=== PATIENT | male | born 1950 | race Caucasian/White ===

== ENCOUNTER 2023-12-25 18:14 | Emergency (ER) | payer MEDICARE, OTHER ==
[2023-12-25 18:33] LABS: BASOPHILS # (AUTO) 0.1 10^3/uL (0.0-0.1); BASOPHILS % (AUTO) 1.1 %; EOSINOPHILS # (AUTO) 0.3 10^3/uL (0.0-0.7); EOSINOPHILS % (AUTO) 4.1 %; HCT - HEMATOCRIT 44.9 % (42.0-52.0); HGB - HEMOGLOBIN 14.8 g/dL (14.0-18.0); LYMPHOCYTES # (AUTO) 1.4 10^3/uL (1.5-3.5); LYMPHOCYTES % (AUTO) 23.2 %; MEAN CORPUSCULAR HEMOGLOBIN 31.8 pg (27.0-31.0); MEAN CORPUSCULAR VOLUME 96.4 fL (80.0-94.0); MEAN PLATELET VOLUME 9.5 fL (7.4-11.4); MONOCYTES # (AUTO) 0.6 10^3/uL (0.0-1.0); NEUTROPHILS # (AUTO) 3.8 10^3/uL (1.5-6.6); NEUTROPHILS % (AUTO) 62.4 %; PLT - PLATELET COUNT 244 10^3/uL (130-450); RED BLOOD COUNT 4.66 10^6/uL (4.70-6.10); RED CELL DISTRIBUTION WIDTH 12.4 % (12.0-15.0); WHITE BLOOD COUNT 6.1 x10^3/uL (4.8-10.8)
[2023-12-25 18:49] LABS: ALBUMIN 4.4 g/dL (3.2-5.5); ALBUMIN/GLOBULIN RATIO 1.6 (1.0-2.2); BILIRUBIN,TOTAL 0.5 mg/dL (0.2-1.0); CALCIUM 9.6 mg/dL (8.5-10.3); POTASSIUM 3.9 mmol/L (3.5-4.5); TOTAL PROTEIN 7.2 g/dL (6.4-8.9)
[2023-12-25] MEDS ORDERED: iohexoL-300 100 ML VIAL ONE (19:10)
--- NOTE | 2023-12-25 19:12 | ED Physician Documentation ---
PD HPI ABD PAIN - Stated complaint Stated Complaint: ABD PX - Chief complaint Chief Complaint: Abd Pain - History obtained from History obtained from: Patient - Additional information Additional information: This is a very nice 73-year-old gentleman, who has a history of diverticulitis or not for many years, and a prior bout of possible colitis (no cdiff) who presents with some mild to moderate generalized abdominal pain. It started around noon today, initially some cramping type pain about every 4 minutes, but the cramps have increased to about every minute now. Located center of the abdomen, nonradiating. He has no associated fever or chills, no nausea, vomiting, diarrhea or constipation, no urinary symptoms. He continues to pass gas. He ate around 1230 and felt like it did not make the pain any worse. He denies any chest pain, no difficulty breathing. He was concerned that this may be diverticulitis as he came into the ER. He is not attempt any medication or other treatment for this. No recent antibiotic use, no international travel. Review of Systems Constitutional: reports: Reviewed and negative Eyes: reports: Reviewed and negative Ears: reports: Reviewed and negative Nose: reports: Reviewed and negative Throat: reports: Reviewed and negative Cardiac: reports: Reviewed and negative Respiratory: reports: Reviewed and negative GI: reports: Abdominal Pain : reports: Reviewed and negative Skin: reports: Reviewed and negative Musculoskeletal: reports: Reviewed and negative Neurologic: reports: Reviewed and negative Psychiatric: reports: Reviewed and negative Endocrine: reports: Reviewed and negative PD PAST MEDICAL HISTORY - Past Medical History Past Medical History: Yes Cardiovascular: High cholesterol Respiratory: None Neuro: None Endocrine/Autoimmune: None GI: GERD : Benign prostate hypertrophy HEENT: None Psych: None, Other Musculoskeletal: None Derm: None Other Past Medical History: SLEEP DISORDER... - Past Surgical History Past Surgical History: Yes Ortho: Knee replacement, Other - Present Medications Home Medications: Ambulatory Orders Medication Instructions Recorded Confirmed Atorvastatin [Lipitor] 10 mg PO DAILY 12/25/23 12/25/23 Dicyclomine [Bentyl] 20 mg PO QID PRN #30 cap 12/25/23 Ondansetron Odt [Zofran] 4 mg TL Q6H PRN #10 tablet 12/25/23 Tamsulosin HCl [Flomax] 0.4 mg PO DAILY 12/25/23 12/25/23 traZODone [Desyrel] 50 mg PO DAILY 12/25/23 12/25/23 - Allergies Allergies/Adverse Reactions: Allergies Allergy/AdvReac Type Severity Reaction Status Date / Time No Known Drug Allergies Allergy Verified 12/25/23 18:25 - Social History Does the pt smoke?: No Smoking Status: Never smoker Does the pt drink ETOH?: Yes Does the pt have substance abuse?: No - Immunizations Immunizations are current?: Yes - POLST Patient has POLST: No PD ED PE NORMAL - Vitals Vital signs reviewed: Yes - General General: Alert and oriented X 3, No acute distress, Well developed/nourished - HEENT HEENT: Atraumatic, Pharynx benign - Cardiac Cardiac: RRR, No murmur, No gallop, No rub - Respiratory Respiratory: No respiratory distress, Clear bilaterally - Abdomen Abdomen: Normal bowel sounds, Soft, Non tender, Non distended, No organomegaly, Other (No reproducible abdominal pain) - Back Back: No CVA TTP, No spinal TTP - Derm Derm: Normal color, Warm and dry, No rash - Extremities Extremities: No deformity - Neuro Neuro: Alert and oriented X 3 Eye Opening: Spontaneous Motor: Obeys Commands Verbal: Oriented GCS Score: 15 - Psych Psych: Normal mood, Normal affect Results - Vitals Vitals: Vital Signs - 24 hr 12/25/23 12/25/23 18:16 20:10 Temperature 36.5 C Heart Rate 63 50 L Respiratory 16 16 Rate Blood Pressure 153/73 H 158/86 H O2 Saturation 99 97 Oxygen O2 Source Room air - EKG (time done) No standard instances EKG releavant findings:: EKG personally interpreted by author of this note. Relevant findings are: Rate: Rate (enter#) (58) Rhythm: NSR [place]: LAD Intervals: Normal MT QRS: Normal Ischemia: Q waves Computer interpretation: Agree with computer - Labs Labs: Laboratory Tests 12/25/23 12/25/23 12/25/23 18:24 18:29 18:29 WBC 6.1 RBC 4.66 L Hgb 14.8 Hct 44.9 MCV 96.4 H MCH 31.8 H MCHC 33.0 RDW 12.4 Plt Count 244 MPV 9.5 Neut # (Auto) 3.8 Lymph # (Auto) 1.4 L [place] # (Auto) 0.6 Eos # (Auto) 0.3 Baso # (Auto) 0.1 Absolute Nucleated RBC 0.00 Nucleated RBC % 0.0 Sodium 137 Potassium 3.9 Chloride 101 Carbon Dioxide 30 Anion Gap 6.0 BUN 17 Creatinine 1.0 Estimated GFR (MDRD) 74 L Glucose 113 H Calcium 9.6 Total Bilirubin 0.5 AST 17 ALT 11 Alkaline Phosphatase 55 Troponin I High Sens Total Protein 7.2 Albumin 4.4 Globulin 2.8 Albumin/Globulin Ratio 1.6 Lipase 53 Urine Color YELLOW Urine Clarity CLEAR Urine pH 6.0 Ur Specific [place] 1.020 Urine Protein NEGATIVE Urine Glucose (UA) NEGATIVE Urine Ketones NEGATIVE Urine Occult Blood NEGATIVE Urine Nitrite NEGATIVE Urine Bilirubin NEGATIVE Urine Urobilinogen 0.2 (NORMAL) Ur Leukocyte Esterase NEGATIVE Ur Microscopic Review NOT INDICATED Urine Culture Comments NOT INDICATED 12/25/23 12/25/23 18:29 20:17 WBC RBC Hgb Hct MCV MCH MCHC RDW Plt Count MPV Neut # (Auto) Lymph # (Auto) [place] # (Auto) Eos # (Auto) Baso # (Auto) Absolute Nucleated RBC Nucleated RBC % Sodium Potassium Chloride Carbon Dioxide Anion Gap BUN Creatinine Estimated GFR (MDRD) Glucose Calcium Total Bilirubin AST ALT Alkaline Phosphatase Troponin I High Sens 22.8 H* 23.8 H* Total Protein Albumin Globulin Albumin/Globulin Ratio Lipase Urine Color Urine Clarity Urine pH Ur Specific [place] Urine Protein Urine Glucose (UA) Urine Ketones Urine Occult Blood Urine Nitrite Urine Bilirubin Urine Urobilinogen Ur Leukocyte Esterase Ur Microscopic Review Urine Culture Comments - Rads (name of study) No standard instances Relevant Findings:: Final report received PD Medical Decision Making - ED course Complexity details: reviewed results, re-evaluated patient, considered differential, d/w patient ED course: This is a 73-year-old gentleman who presented with central abdominal pain as described in HPI. He was concern for possible diverticulitis. He is well- appearing here on physical exam, afebrile nontoxic in no acute distress. He Does not have any reproducible abdominal pain on exam but cramping every couple of minutes. He initially declined any pain medication but later did request some medication and he was given Toradol and Bentyl with improvement. Differentials considered included colitis, gastroenteritis, diverticulitis, anginal equivalent, GERD, pancreatitis, choledocholithiasis, Dissection, AAA, among others. Lab work was largely reassuring, stable CBC and CMP, I did get a troponin which is very slightly elevated at 22.8 and follow-up was 23. It is the patient has no chest pain or shortness of breath, and has more of a cramping abdominal pain, and stable EKG, I do not think this represents an HI. The patient had good relief with the Toradol and Bentyl as well as Zofran. We obtained a CT scan that shows possible enterocolitis versus early ileus or bowel obstruction. Given the patient still passing gas and symptoms have improved I think this is more likely a noninfectious colitis, and have recommended supportive measures including clear liquid diet, ibuprofen and Tylenol as needed for pain, and have prescribed Bentyl. The patient was given 4 tablets of [place] to use only if absolutely necessary though he is cautioned that this could make an ileus or bowel obstruction worse and he does not plan on taking these if he does not have to. I did review the CT findings with the patient and advised that this potentially could be very early obstruction or ileus symptoms and that if he had increasing abdominal pain, started vomiting, was not able to pass gas or had new concerns that he would need to return to the ER. Patient stable for discharge home at this time, return precautions reviewed in detail. Departure - Departure Disposition: 01 Home, Self Care Clinical Impression: Enterocolitis Condition: Good Instructions: Ileus, ED Gastroenteritis Non Infec Prescriptions: Dicyclomine [Bentyl] 20 mg PO QID PRN #30 cap PRN Reason: abdominal cramping/pain Ondansetron Odt [Zofran] 4 mg TL Q6H PRN #10 tablet PRN Reason: Nausea / Vomiting Comments: As we discussed, your CT scan showed some inflammation in the colon, likely a colitis which should improve on its own. You may, however, be developing an early bowel obstruction so if your pain worsens or you stop passing gas, start vomiting or having new concerns, please return to the ER. I have prescribed a nausea medicine and a medication to help with bowel cramping. You can also take Tylenol and ibuprofen. I am giving you a few tablets of hydrocodone to use only if absolutely necessary, but they can actually make a bowel obstruction or ileus worse. Stick to a clear liquid diet for the next 24 hours or so and then advance slowly to soft foods if you are feeling better. Avoid eating any foods that are difficult to digest such as meats and spicy foods for the next week or so until your symptoms improve. Return at anytime if worsening. Medication sent to [facility]. Forms: PCP List Discharge Date/Time: 12/25/23 20:55
[2023-12-25 19:29] LABS: BILIRUBIN,URINE NEGATIVE (NEGATIVE); GLUCOSE, URINE (UA) NEGATIVE (NEGATIVE); KETONES,URINE (UA) NEGATIVE (NEGATIVE); LEUKOCYTE ESTERASE, URINE NEGATIVE (NEGATIVE); NITRITE,URINE NEGATIVE (NEGATIVE); OCCULT BLOOD,URINE NEGATIVE (NEGATIVE); PROTEIN,URINE NEGATIVE (NEGATIVE); UROBILINOGEN,URINE 0.2 (NORMAL) E.U./dL (NORMAL)
[2023-12-25 19:30] LABS: CLARITY,URINE CLEAR (CLEAR)
[2023-12-25] MEDS: iohexoL-300 100 ML VIAL IVP ONE (19:33)
--- NOTE | 2023-12-25 19:54 | CT Report ---
PROCEDURE: Abdomen/Pelvis W INDICATIONS: abd pain CONTRAST: 100ml [id number] TECHNIQUE: After the administration of intravenous contrast, a CT scan of the abdomen and pelvis was performed. Images were recorded and evaluated at appropriate window settings. Reformats: coronal and sagittal. F or radiation dose reduction, the following was used: automated exposure control, adjustment of mA and /or kV according to patient size. COMPARISON: None. FINDINGS: Image quality: Diagnostic. Lower chest: Possible 6 mm left lower lobe nodule versus focal atelectasis. Lungs otherwise clear. Sm all hiatal hernia. Heart size is normal. Small pericardial effusion likely physiologic. Liver: Hepatic steatosis. Gallbladder: No radiopaque stones or wall thickening. Biliary tree: No intrahepatic or extrahepatic dilation, accounting for age. Spleen: No splenomegaly. Pancreas: No pancreatic ductal dilation. No peripancreatic inflammation. Adrenals: No adrenal nodule. Kidneys and ureters: No hydronephrosis. No renal cystic lesion which requires follow up. No solid mas s. Bilateral ureters are normal in course and caliber. Stomach, bowel and peritoneum: No gastric or small bowel dilatation. Multiple loops of fluid-filled s mall bowel without significant dilatation or wall thickening. No mesenteric stranding. There is also mild circumferential wall thickening of the ascending colon, transverse colon and ascending colon. Mi nimal pericolonic stranding. Extensive colonic diverticulosis without evidence for acute diverticulit is. Normal appendix No pathologic free fluid. Lymph nodes: No central or retroperitoneal adenopathy. Vessels: No infrarenal aortic aneurysm. Patent portal vein. PELVIS Reproductive organs: Unremarkable. Bladder: No abnormal wall thickening, accounting for underdistention. Pelvic lymph nodes: No pelvic adenopathy by size criteria. Bones: No aggressive osseous abnormality. Multilevel spondylosis of the imaged spine. No acute compre ssion fracture. Other: No significant ventral or inguinal hernia. Small fat-containing umbilical hernia without acute inflammation. IMPRESSION: Multiple fluid-filled loops of small bowel without significant distention or wall thickening. There i s also mild circumferential wall thickening of the ascending colon through the distal descending colo n suggestive of colitis. Overall, findings likely represent enterocolitis either infectious or inflam matory in etiology. Early ileus versus obstruction not excluded but thought less likely. Colonic diverticulosis without acute diverticulitis. Normal appendix. Small hiatal hernia. Hepatic steatosis. Other chronic/nonacute findings as above. Reviewed by: Redd Conti MD on 12/25/2023 7:53 PM PDT Approved by: Redd Conti MD on 12/25/2023 7:53 PM PDT Station ID: [id number]
[2023-12-25] MEDS: DICYCLOMINE 10 MG CAPSULE PO STA (20:02)
[2023-12-25] MEDS: KETOROLAC 30 MG/ML VIAL IVP STA (20:03)
[2023-12-25] MEDS: ONDANSETRON 4 MG/2 ML VIAL IVP STA (20:03)
[2023-12-25 20:15] VITALS: BP 158/86; O2SAT 97
[2023-12-25] MEDS: ONDANSETRON ODT 4 MG Prepack 2 TL PRN (20:36)
[2023-12-25] MEDS: HYDROcod/ACET 5/325 Prepack 4 PO STA (20:37)
== END 2023-12-25 20:55 | disposition home or self-care (01) ==
LOC: ED 18:14
DX: K52.9 Noninfective gastroenteritis and colitis, unspecified (principal); E78.00 Pure hypercholesterolemia, unspecified; K21.9 Gastro-esophageal reflux disease without esophagitis
CPT/HCPCS: 36415; 74177; 80053; 81003; 83690; 84484; 85025; 93005; 96374; 99284; A9270; Q9967; 81001; 87086

== ENCOUNTER 2023-12-26 15:16 | Inpatient (IN) | payer MEDICARE ==
--- NOTE | 2023-12-26 15:26 | ED Physician Documentation ---
History of Present Illness - Stated complaint Stated Complaint: ABD PX - Additonal information Additional information: 73-year-old male with history of diverticulitis no history of abdominal surgeries, hypercholesterolemia, GERD, BPH presents emergency department for ongoing abdominal pain. Patient was seen in our emergency department yesterday evening where a CT scan was complete and workup was complete and was fairly inconclusive CT scan did reveal multiple fluid-filled loops of small bowel without significant distention with possible early signs of an ileus. Patient has had no history of abdominal surgeries in the past. He says going home his abdominal pain has increased in severity he is now feeling nauseous no vomiting he says that he has a strong urge to have a bowel movement or to pass gas but is unable to do so. No fevers or chills. PD PAST MEDICAL HISTORY - Past Medical History Cardiovascular: High cholesterol Respiratory: None Neuro: None Endocrine/Autoimmune: None GI: GERD : Benign prostate hypertrophy HEENT: None Psych: None, Other Musculoskeletal: None Derm: None - Past Surgical History Past Surgical History: Yes Ortho: Knee replacement, Other - Present Medications Home Medications: Ambulatory Orders Medication Instructions Recorded Confirmed Atorvastatin [Lipitor] 10 mg PO DAILY 12/25/23 12/26/23 Dicyclomine [Bentyl] 20 mg PO QID PRN #30 cap 12/25/23 12/26/23 Ondansetron Odt [Zofran] 4 mg TL Q6H PRN #10 tablet 12/25/23 12/26/23 Tamsulosin HCl [Flomax] 0.4 mg PO DAILY 12/25/23 12/26/23 traZODone [Desyrel] 50 mg PO DAILY 12/25/23 12/26/23 - Allergies Allergies/Adverse Reactions: Allergies Allergy/AdvReac Type Severity Reaction Status Date / Time No Known Drug Allergies Allergy Verified 12/26/23 15:30 - Social History Does the pt smoke?: No Smoking Status: Never smoker Does the pt drink ETOH?: Yes Does the pt have substance abuse?: No - Immunizations Immunizations are current?: Yes - POLST Patient has POLST: No PD ED PE NORMAL - Vitals Vital signs reviewed: Yes - General General: Alert and oriented X 3, No acute distress, Well developed/nourished - HEENT HEENT: Atraumatic, PERRL, EOMI - Neck Neck: Supple, no meningeal sign - Cardiac Cardiac: RRR - Respiratory Respiratory: No respiratory distress - Abdomen Abdomen: Soft, Other (distended, decreased bowel tones, tenderness with palpation, No signs of peritonitis) - Back Back: No CVA TTP - Derm Derm: Normal color, Warm and dry, No rash - Psych Psych: Normal mood, Normal affect Results - Vitals Vitals: Vital Signs - 24 hr 12/26/23 12/26/23 12/26/23 15:27 17:30 19:00 Temperature 36.5 C Heart Rate 88 76 68 Respiratory 16 15 15 Rate Blood Pressure 144/99 H 152/79 H 148/83 H O2 Saturation 94 95 95 Oxygen O2 Source Room air - Labs Labs: Laboratory Tests 12/26/23 12/26/23 15:47 15:47 WBC 9.6 RBC 5.03 Hgb 15.8 Hct 47.8 MCV 95.0 H MCH 31.4 H MCHC 33.1 RDW 12.3 Plt Count 246 MPV 9.5 Neut # (Auto) 8.1 H Lymph # (Auto) 0.8 L [place] # (Auto) 0.5 Eos # (Auto) 0.1 Baso # (Auto) 0.0 Absolute Nucleated RBC 0.00 Nucleated RBC % 0.0 Sodium 132 L Potassium 4.1 Chloride 95 L Carbon Dioxide 29 Anion Gap 8.0 BUN 15 Creatinine 1.0 Estimated GFR (MDRD) 74 L Glucose 115 H Calcium 9.9 Magnesium 1.7 Total Bilirubin 1.2 H AST 16 ALT 10 Alkaline Phosphatase 62 Total Protein 7.2 Albumin 4.3 Globulin 2.9 Albumin/Globulin Ratio 1.5 Lipase 31 - Rads (name of study) Abdomen pelvis CT with Relevant Findings:: Final report received, EMP independent interpretation of test, Other (Definite evidence of small bowel obstruction at the distal level of the ileum. Developing pancreatic duct dilation without obstructing mass) PD Medical Decision Making - ED course ED course: 73-year-old male presents emergency department for abdominal pain. Patient was here last night but we went ahead and decided to repeat CT scan as patient's abdominal pain has worsened with now worsening nausea. CT does now show a definite evidence of a small bowel obstruction at the level of the distal ileum. Labs are also complete for further evaluation he has no leukocytosis no anemia mild hyponatremia, 132, normal kidney function no other acute abnormalities on labs. Patient did drink oral Gastrografin for CT scan an NG tube was placed. I spoke with the on-call telemetry hospitalist who has graciously agreed to admit the patient for further hospitalization and workup of patient's small bowel obstruction. He did last have a endoscopy/colonoscopy about a year ago in [place] and they removed a couple polyps and the tissue was found to be benign he also appeared to have some internal hemorrhoids. I spoke with the on- call surgeon Dr. Rodriguez who has graciously agreed to consult on the patient he does not believe that he will need surgery at this point in time. Patient's pain is controlled with Dilaudid here in the emergency department and he has agreed to be admitted. Departure - Departure Disposition: 66 [facility] DC/Rita Clinical Impression: Small bowel obstruction
[2023-12-26] MEDS ORDERED: iohexoL-300 100 ML VIAL ONE (15:49)
[2023-12-26] MEDS ORDERED: DIATRIZOATE MEGLU/DIATRIZO SOD 30 ML BOTTLE PO ONE (15:50)
[2023-12-26 15:54] LABS: BASOPHILS % (AUTO) 0.4 %; EOSINOPHILS # (AUTO) 0.1 10^3/uL (0.0-0.7); EOSINOPHILS % (AUTO) 1.4 %; HCT - HEMATOCRIT 47.8 % (42.0-52.0); HGB - HEMOGLOBIN 15.8 g/dL (14.0-18.0); LYMPHOCYTES # (AUTO) 0.8 10^3/uL (1.5-3.5); MEAN CORPUSCULAR HEMOGLOBIN 31.4 pg (27.0-31.0); MEAN CORPUSCULAR HGB CONC 33.1 g/dL (32.0-36.0); MEAN PLATELET VOLUME 9.5 fL (7.4-11.4); MONOCYTES # (AUTO) 0.5 10^3/uL (0.0-1.0); MONOCYTES % (AUTO) 5.7 %; NEUTROPHILS # (AUTO) 8.1 10^3/uL (1.5-6.6); NEUTROPHILS % (AUTO) 84.3 %; PLT - PLATELET COUNT 246 10^3/uL (130-450); RED BLOOD COUNT 5.03 10^6/uL (4.70-6.10); RED CELL DISTRIBUTION WIDTH 12.3 % (12.0-15.0); WHITE BLOOD COUNT 9.6 x10^3/uL (4.8-10.8)
[2023-12-26 16:06] LABS: ALBUMIN 4.3 g/dL (3.2-5.5); ALBUMIN/GLOBULIN RATIO 1.5 (1.0-2.2); BILIRUBIN,TOTAL 1.2 mg/dL (0.2-1.0); CALCIUM 9.9 mg/dL (8.5-10.3); MAGNESIUM 1.7 mg/dL (1.7-2.3); POTASSIUM 4.1 mmol/L (3.5-4.5); TOTAL PROTEIN 7.2 g/dL (6.4-8.9)
[2023-12-26] MEDS: HYDROmorphone 0.5 MG/0.5 ML SYRINGE IVP STA ×2 (16:13→18:39)
[2023-12-26] MEDS: ONDANSETRON 4 MG/2 ML VIAL IVP STA (16:13)
[2023-12-26] MEDS: iohexoL-300 100 ML VIAL IVP ONE (17:25)
--- NOTE | 2023-12-26 17:42 | CT Report ---
PROCEDURE: Abdomen/Pelvis W INDICATIONS: generalized abdominal pain CONTRAST: 100ml [id number] TECHNIQUE: After the administration of intravenous contrast, a CT scan of the abdomen and pelvis was performed. Images were recorded and evaluated at appropriate window settings. Reformats: coronal and sagittal. F or radiation dose reduction, the following was used: automated exposure control, adjustment of mA and /or kV according to patient size. COMPARISON: 12/25/2023. FINDINGS: Image quality: Diagnostic. Lower chest: Unremarkable. Liver: No solid mass. Gallbladder: No radiopaque stones or wall thickening. Biliary tree: No intrahepatic or extrahepatic dilation, accounting for age. Spleen: No splenomegaly. Pancreas: Pancreatic duct is dilated. However, there is no obstructing lesion noted. The pancreatic d uct looks more dilated than yesterday. Adrenals: No adrenal nodule. Kidneys and ureters: No hydronephrosis. No renal cystic lesion which requires follow up. No solid mas s. Stomach, bowel and peritoneum: Moderate hiatal hernia. Thickened distal esophagus is consistent with distal esophagitis Interval increase in dilatation of small bowel loops consistent with worsening sma ll bowel obstruction. Presence, a patient support representative loop on image 66 of series 2 now measures 3.4 cm. Th ere is a transition point in the ileum. On today's study, the colon appears decompressed resulting in mild prominence of the wall of the colon. Moderately advanced sigmoid diverticulosis without evidenc e of acute diverticulitis. Lymph nodes: No central or retroperitoneal adenopathy. Vessels: No infrarenal aortic aneurysm. Patent portal vein. PELVIS Reproductive organs: Unremarkable. Bladder: No abnormal wall thickening, accounting for underdistention. Pelvic lymph nodes: No pelvic adenopathy by size criteria. Bones: No aggressive osseous abnormality. Other: No significant ventral or inguinal hernia. IMPRESSION: 1. There is now definite evidence of small bowel obstruction at the level of the distal ileum. 2. Moderately advanced sigmoid diverticulosis without evidence of acute diverticulitis. 3.. Moderate hiatal hernia with findings suggesting distal esophagitis. 4. Developing pancreatic duct dilatation without obstructing mass Reviewed by: Star Arora MD on 12/26/2023 5:40 PM PDT Approved by: Star Arora MD on 12/26/2023 5:40 PM PDT Station ID: [id number]
--- NOTE | 2023-12-26 19:59 | HISTORY & PHYSICAL EXAMINATION ---
Chief Complaint - Chief Complaint Chief Complaint: abdominal pain History of Present Illness - Admitted From Admitted From:: home - History Obtained From Records Reviewed: yes History obtained from: patient, chart review Exam Limitations: telemedicine - History of Present Illness HPI Comment/Other: Mr Butler is a 73 yo M with history of HLD, diverticulosis/diverticulitis. He denies any prior history of abdominal surgeries, no prior history of SBO. He presents to the ER with c/o abdominal pain onset 2 days ago, throbbing, intermittent, aching, up to 8/10 pain at times, lasts a few seconds at a time. He was seen yesterday for suspected ileus, today pain worsened and associated with nausea so he returned to the ER. CT scan shows small bowel obstruction at distal ileum. Denies vomiting, feels nauseous. Poor appetite since yesterday. Last BM on Saturday morning (after taking a laxative). He has been constipated few days prior, constipation is new. Denies blood in stool. Denies dark/tarry stool. Denies fevers/chills. Last colonoscopy ~1 year ago in [place] with polypectomy. Currently pain is 3/10, much improved, placement of NG tube in ER and he has received IV dilaudid. History - Past Medical History Cardiovascular: reports: High cholesterol Respiratory: reports: None Neuro: reports: None Endocrine/Autoimmune: reports: None GI: reports: GERD : reports: Benign prostate hypertrophy HEENT: reports: None Psych: reports: None, Other Musculoskeletal: reports: None Derm: reports: None MRSA Hx?: No - Past Surgical History Ortho: reports: Knee replacement, Other - POLST Patient has POLST: No Meds/Allgy - Home Medications Home Medications: Ambulatory Orders Medication Instructions Recorded Confirmed Atorvastatin [Lipitor] 10 mg PO DAILY 12/25/23 12/26/23 Dicyclomine [Bentyl] 20 mg PO QID PRN #30 cap 12/25/23 12/26/23 Ondansetron Odt [Zofran] 4 mg TL Q6H PRN #10 tablet 12/25/23 12/26/23 Tamsulosin HCl [Flomax] 0.4 mg PO DAILY 12/25/23 12/26/23 traZODone [Desyrel] 50 mg PO DAILY 12/25/23 12/26/23 - Allergies Allergies/Adverse Reactions: Allergies Allergy/AdvReac Type Severity Reaction Status Date / Time No Known Drug Allergies Allergy Verified 12/26/23 15:30 Review of Systems - Constitutional Constitutional: reports: Poor appetite. denies: Fever, Chills, Weakness - Cardiovascular Cariovascular: denies: Palpitations, Chest pain - Respiratory Respiratory: denies: Cough, Sputum production - Gastrointestinal Gastrointestinal: reports: Abdominal pain, Abdominal distention, Constipation, Change in bowel habits, Nausea, Poor appetite. denies: Diarrhea, Rectal bleeding, Black stools, Bloody stools, Vomiting - Integumentary Integumentary: denies: Rash, Pruritis - Neurological Neurological: denies: General weakness, Focal weakness - All Other Systems All Other Systems: reports: Reviewed and negative Exam - Vital Signs Reviewed Vital Signs: Yes Vital Signs: Vital Signs x48h Temp Pulse Resp BP Pulse Ox 12/26/23 19:00 68 15 148/83 H 95 12/26/23 17:30 76 15 152/79 H 95 12/26/23 15:27 36.5 C 88 16 144/99 H 94 - Physical Exam General Appearance: positive: No acute distress, Alert Respiratory: positive: No respiratory distress Abdomen: positive: Tenderness (with patient exam, diffuse tenderness with palpation) Rectal: negative: Bloody stool Skin: positive: Color nml, No rash Neurologic/Psychiatric: positive: Oriented x3, Mood/affect nml Conclusion/Plan - Lab Results Lab results reviewed: Yes Fish Bones: 12/26/23 15:47 12/26/23 15:47 - Diagnostic Imaging Results Diagnostic Imaging Results: positive: Final report reviewed - Other Other Results/Comments: Assessment/Plan Small bowel obstruction -No prior history of SBO or abdominal surgery, he does have a history of diverticulosis -No evidence of diverticulitis on CT -Obstruction at the level of distal ileum per CT report -Patient has not had BM or passed flatus x 2 days -NG tube in place -Strict NPO -IV fluids for hydration -IV pain control -ER provider has reviewed case with general surgery, will consult in a.m. HLD -Hold statin while NPO BPH -Per patient ok to hold Flomax for tonight DVT ppx: SCDs (in case indication for surgical intervention), encourage ambulation as tolerated Full code Telemedicine Consult Details - Provider Location & Consult Time Telemedicine consultation conducted via videoconferencing?: Yes List names and roles of persons who participated in consult:: Ciera MCKEON, patient, ER provider (phone call) Telemedicine provider location:: [facility] [place]
[2023-12-26] MEDS ORDERED: SODIUM CHLORIDE FLUSH 0.9% 10 ML SYRINGE IVP PRN (20:04)
[2023-12-26] MEDS ORDERED: HYDROmorphone 0.5 MG/0.5 ML SYRINGE IVP PRN (20:04)
--- NOTE | 2023-12-26 20:55 | XRAY Report ---
PROCEDURE: No-Charge 1V Abdomen INDICATIONS: NG tube TECHNIQUE: 1 view of the abdomen were acquired. COMPARISON: None. FINDINGS: Surgical changes and devices: Nasogastric tube projects below the left hemidiaphragm. Bowel: No pneumoperitoneum. The bowel gas pattern is normal. Stool load within normal limits. Soft tissues: No masses; visualized solid organ contours appear normal in size. No suspicious abdom inal calcifications. Bones: No suspicious bony abnormalities. IMPRESSION: Nasogastric tube projecting below the left hemidiaphragm. Reviewed by: Elinor Cortez MD on 12/26/2023 8:54 PM PDT Approved by: Elinor Cortez MD on 12/26/2023 8:54 PM PDT Station ID: [id number]
[2023-12-26] MEDS: FAMOTIDINE 20 MG/2 ML VIAL IVP SCH (21:05)
[2023-12-26] MEDS: SODIUM CHLORIDE 0.9% 1,000 ML IV SCH (21:05)
[2023-12-27] MEDS: HYDROmorphone 0.5 MG/0.5 ML SYRINGE IVP PRN (01:12)
[2023-12-27] MEDS: SODIUM CHLORIDE FLUSH 0.9% 10 ML SYRINGE IVP SCH (01:15)
[2023-12-27 05:58] LABS: CREATININE 1.1 mg/dL (0.6-1.3); POTASSIUM 4.4 mmol/L (3.5-4.5)
--- NOTE | 2023-12-27 10:23 | PROVIDER PROGRESS NOTE ---
Assessment/Plan - Problem List (1) Small bowel obstruction Assessment/Plan: Patient admitted overnight due to abdominal pain with confirmed SBO with transition point on imaging. Patient without prior history of SBO, and denies any prior abdominal surgeries. Continues to have colicky, crampy abdominal pain though he does have bowel sounds present on exam * Continue NG tube with low intermittent suction * Continue pain control, minimizing narcotics as much as possible * General surgery consult requested by ED attending, appreciate assistance by our general surgery colleagues * Given improvement with bowel activity, consider small bowel follow through series (2) Dilated cbd, acquired Assessment/Plan: Patient with abdominal pain due to confirmed SBO Does not endorse specific RUQ pain though he does have some RUQ tenderness on exam LFTs are reassuring with minimal elevation to bilirubin However given CBD dilatation on CT abdomen, with abdominal pain present, would be reasonable to evaluate further with US RUQ, order has been placed (3) HLD (hyperlipidemia) Assessment/Plan: Given SBO, will limit any unnecessary PO meds - hold statin (4) BPH (benign prostatic hyperplasia) Assessment/Plan: Stable Resume flomax - Current Meds Current Meds: Current Medications Generic Name Dose Route Start Last Admin Trade Name Freq PRN Reason Stop Dose Admin Famotidine 20 mg 12/26/23 21:00 12/27/23 08:51 Famotidine 20 Mg/2 Ml Vial IVP 20 mg BID SOHAM Administration Sodium Chloride 1,000 mls @ 100 mls/hr 12/26/23 21:00 12/27/23 07:26 Normal Saline 0.9% IV 100 mls/hr .Q10H SOHAM Administration Sodium Chloride 10 ml 12/27/23 01:00 12/27/23 08:51 Sodium Chloride Flush 0.9% 10 Ml Syringe IVP 10 ml 0100,0900,1700 SOHAM Administration - Lab Result Lab results reviewed: Yes Fish Bone Diagrams: 12/26/23 15:47 12/27/23 05:19 - Diagnostic Imaging Results Diagnostic Imaging Results: Final report reviewed - Additional Planning Condition/Complexity: Stable My Orders: My Active Orders 12/27/23 09:44 Acetaminophen [Tylenol] 650 mg PO Q4HR PRN 12/27/23 09:49 oxyCODONE [Roxicodone] 10 mg PO Q4HR PRN 12/28/23 05:00 CBC W/O DIFF (HEMOGRAM) [HEME] DAILYLAB CMP [COMPREHENSIVE METABOLIC PANEL] [CHEM] DAILYLAB 12/29/23 05:00 CBC W/O DIFF (HEMOGRAM) [HEME] DAILYLAB CMP [COMPREHENSIVE METABOLIC PANEL] [CHEM] DAILYLAB 12/30/23 05:00 CBC W/O DIFF (HEMOGRAM) [HEME] DAILYLAB CMP [COMPREHENSIVE METABOLIC PANEL] [CHEM] DAILYLAB Consult/Specialty: Surgery Plan Discussed with:: Patient Time Spent: 15-30 minutes Subjective - Subjective Patient Reports: Abdominal Pain Nursing Reports: Vomitting (x1) Objective Vital Signs: Vital Signs - 24 hr 12/26/23 12/26/23 12/26/23 15:27 17:30 19:00 Temperature 36.5 C Heart Rate 88 76 68 Heart Rate [ Brachial] Respiratory 16 15 15 Rate Blood Pressure 144/99 H 152/79 H 148/83 H Blood Pressure [Left Brachial artery] Blood Pressure [Right Brachial artery] O2 Saturation 94 95 95 12/26/23 12/27/23 12/27/23 20:52 00:15 07:53 Temperature 36.5 C 36.9 C 36.6 C Heart Rate Heart Rate [ 98 74 82 Brachial] Respiratory 20 18 18 Rate Blood Pressure Blood Pressure 145/92 H [Left Brachial artery] Blood Pressure 133/82 H 110/65 [Right Brachial artery] O2 Saturation 96 94 95 Oxygen O2 Source Room air I&O (Last 24 Hrs): Intake and Output Totals x24h 12/25/23 12/26/23 12/27/23 23:59 23:59 23:59 Intake Total 1060 Output Total 675 Balance 385 General: Alert, Oriented x3, Cooperative HEENT: Atraumatic, EOMI Cardiovascular: Regular rate, Normal S1, Normal S2 Respiratory: No respiratory distress Abdomen: Normal bowel sounds, Soft, Other (Generalized tenderness to palpation, bowel sounds are present x 4 quadrants, but moderately hypoactive) Extremities: No clubbing, No cyanosis, No edema Skin: No rashes - Results Results: Laboratory Results WBC 9.6 x10^3/uL (4.8-10.8) 12/26/23 15:47 RBC 5.03 10^6/uL (4.70-6.10) 12/26/23 15:47 Hgb 15.8 g/dL (14.0-18.0) 12/26/23 15:47 Hct 47.8 % (42.0-52.0) 12/26/23 15:47 MCV 95.0 fL (80.0-94.0) H 12/26/23 15:47 MCH 31.4 pg (27.0-31.0) H 12/26/23 15:47 MCHC 33.1 g/dL (32.0-36.0) 12/26/23 15:47 RDW 12.3 % (12.0-15.0) 12/26/23 15:47 Plt Count 246 10^3/uL (130-450) 12/26/23 15:47 MPV 9.5 fL (7.4-11.4) 12/26/23 15:47 Neut # (Auto) 8.1 10^3/uL (1.5-6.6) H 12/26/23 15:47 Lymph # (Auto) 0.8 10^3/uL (1.5-3.5) L 12/26/23 15:47 Yell # (Auto) 0.5 10^3/uL (0.0-1.0) 12/26/23 15:47 Eos # (Auto) 0.1 10^3/uL (0.0-0.7) 12/26/23 15:47 Baso # (Auto) 0.0 10^3/uL (0.0-0.1) 12/26/23 15:47 Absolute Nucleated RBC 0.00 x10^3/uL 12/26/23 15:47 Nucleated RBC % 0.0 /100WBC 12/26/23 15:47 Sodium 132 mmol/L (135-145) L 12/27/23 05:19 Potassium 4.4 mmol/L (3.5-4.5) 12/27/23 05:19 Chloride 95 mmol/L (101-111) L 12/27/23 05:19 Carbon Dioxide 30 mmol/L (21-32) 12/27/23 05:19 Anion Gap 7.0 (6-13) 12/27/23 05:19 BUN 14 mg/dL (6-20) 12/27/23 05:19 Creatinine 1.1 mg/dL (0.6-1.3) 12/27/23 05:19 Estimated GFR (MDRD) 66 (>89) L 12/27/23 05:19 Glucose 116 mg/dL (74-104) H 12/27/23 05:19 Calcium 9.0 mg/dL (8.5-10.3) 12/27/23 05:19 Magnesium 1.7 mg/dL (1.7-2.3) 12/26/23 15:47 Total Bilirubin 1.2 mg/dL (0.2-1.0) H 12/26/23 15:47 AST 16 IU/L (10-42) 12/26/23 15:47 ALT 10 IU/L (10-60) 12/26/23 15:47 Alkaline Phosphatase 62 IU/L (42-121) 12/26/23 15:47 Total Protein 7.2 g/dL (6.4-8.9) 12/26/23 15:47 Albumin 4.3 g/dL (3.2-5.5) 12/26/23 15:47 Globulin 2.9 g/dL (2.1-4.2) 12/26/23 15:47 Albumin/Globulin Ratio 1.5 (1.0-2.2) 12/26/23 15:47 Lipase 31 U/L (11-82) 12/26/23 15:47 ABX Reporting Has patient been on IV antibiotics over the past 48 hours?: No Current Medications - Current Medications Current Medications: Current Medications Generic Name Dose Route Start Last Admin Trade Name Freq PRN Reason Stop Dose Admin Famotidine 20 mg 12/26/23 21:00 12/27/23 08:51 Famotidine 20 Mg/2 Ml Vial IVP 20 mg BID SOHAM Administration Sodium Chloride 1,000 mls @ 100 mls/hr 12/26/23 21:00 12/27/23 07:26 Normal Saline 0.9% IV 100 mls/hr .Q10H SOHAM Administration Sodium Chloride 10 ml 12/27/23 01:00 12/27/23 08:51 Sodium Chloride Flush 0.9% 10 Ml Syringe IVP 10 ml 0100,0900,1700 SOHAM Administration
--- NOTE | 2023-12-27 10:24 | Ultrasound Report ---
PROCEDURE: Abdomen Limited INDICATIONS: RUQ U/S to evaluate CBD dilatation, abdominal pain TECHNIQUE: Real-time focused scanning was performed of the abdomen, with image documentation. COMPARISONS: 12/26/2023 CT FINDINGS: Liver: Liver measures 15 cm. Heterogeneous echotexture. Gallbladder: No gallstones, sludge, wall thickening or pericholecystic edema. Biliary ducts: Intrahepatic bile ducts are non-dilated. Extrahepatic bile duct caliber measures 3 m m. Normal is 6-7 mm or less in diameter, or 10 mm or less post-cholecystectomy. Pancreas: Visualized portions of the pancreas are sonographically normal. The pancreatic duct measures 2 mm, within normal limits Right kidney: Normal in size and echotexture. Right kidney measures 9 cm long. No hydronephrosis or nephrolithiasis. No solid masses. No complex renal cystic lesions which require follow-up. IVC: Intrahepatic inferior vena cava is patent. Miscellaneous: No free abdominal fluid. IMPRESSION: No acute gallbladder abnormality. No pathologic dilation of the pancreatic duct or CBD allowing for age. Heterogeneous hepatic echotexture is nonspecific, sometimes seen with fibrofatty infiltration Reviewed by: Cruzito Vargas MD on 12/27/2023 10:23 AM PDT Approved by: Cruzito Vargas MD on 12/27/2023 10:23 AM PDT Station ID: [id number]
[2023-12-27] MEDS: ONDANSETRON 4 MG/2 ML VIAL IVP PRN (11:49)
[2023-12-27] MEDS: TAMSULOSIN 0.4 MG CAPSULE PO SCH (11:49)
--- NOTE | 2023-12-27 13:05 | PHARMACY PROGRESS NOTE ---
- Best Possible Medication History Admit Date and Time: 12/26/232003 Processed by: Pharmacy Medication History completed: Yes Patient Interview: Completed Secondary Source(s): Written medication list, Pharmacy records (PER PT INTERVIEW, LOR RECORDS, AND KATH SEO), Insurance records As the person ultimately responsible for medication therapy, providers are able to order a medication from an existing home medication list in [facility] via the "Reconcile Routine" prior to Confirmation of that medication by [employer] intelligence support. Such practice is discouraged except when the physician, in their clinical judgment, deems that a medical need exists for a medication without regard to previous use.
[2023-12-27] MEDS ORDERED: LORazepam 2 MG/ML VIAL IVP PRN (14:09)
--- NOTE | 2023-12-27 14:30 | CONSULTATION NOTE ---
Referring Provider Name of Referring Provider:: KOLE Pérez Consult Date: 12/27/23 Chief Complaint - Chief Complaint Chief Complaint: Small bowel obstruction History of Present Illness - Admitted From Admitted From:: Emergency department - History Obtained From Records Reviewed: Yes History obtained from: Patient and chart Exam Limitations: None - History of Present Illness HPI Comment/Other: Patient is a very pleasant 73-year-old male evaluated in room [address] [facility]'s MedSurg unit at the request of Alexandria Kelley. Dr. Jv Coreas also discussed his care with me this morning. The patient had the abrupt onset of abdominal pain along with profound nausea but no vomiting. He states that he felt like he needed to push to have a bowel movement but could not to due to the distention in his stomach. Today he states that he does not have that distended feeling but he has had a nasogastric tube placed with a marked decrease in his stomach volume. Importantly, he states he has never had a previous surgery but he does not remember. He states he could have had his appendix out. He is states that he is normally very active and golfs 3 times a week in [place]. After I saw the patient Dr. Coreas tells me about the possibility of DTs in this patient. History - Past Medical History Cardiovascular: reports: High cholesterol Respiratory: reports: None Neuro: reports: None Endocrine/Autoimmune: reports: None GI: reports: GERD : reports: Benign prostate hypertrophy HEENT: reports: None Psych: reports: None, Other Musculoskeletal: reports: None Derm: reports: None MRSA Hx?: No - Past Surgical History Ortho: reports: Knee replacement, Other - POLST Patient has POLST: No Meds/Allgy - Home Medications Home Medications: Ambulatory Orders Medication Instructions Recorded Confirmed Atorvastatin [Lipitor] 10 mg PO DAILY 12/25/23 12/27/23 Dicyclomine [Bentyl] 20 mg PO QID PRN #30 cap 12/25/23 12/27/23 Ondansetron Odt [Zofran] 4 mg TL Q6H PRN #10 tablet 12/25/23 12/27/23 Tamsulosin HCl [Flomax] 0.4 mg PO DAILY 12/25/23 12/27/23 traZODone [Desyrel] 50 mg PO DAILY 12/25/23 12/27/23 - Allergies Allergies/Adverse Reactions: Allergies Allergy/AdvReac Type Severity Reaction Status Date / Time No Known Drug Allergies Allergy Verified 12/26/23 15:30 Review of Systems - Constitutional Constitutional: denies: Fatigue, Fever, Chills - Eyes Eyes: denies: Pain - Ears, Nose & Throat Ears, Nose & Throat: denies: Ear pain - Cardiovascular Cariovascular: denies: Irregular heart rate, Palpitations, Chest pain - Respiratory Respiratory: denies: Cough - Gastrointestinal Gastrointestinal: reports: Abdominal pain, Abdominal distention, Constipation, Nausea. denies: Rectal bleeding, Black stools, Bloody stools, Vomiting - Genitourinary Genitourinary: denies: Dysuria - Musculoskeletal Musculoskeletal: denies: Muscle pain, Back pain - Integumentary Integumentary: denies: Rash - Psychiatric Psychiatric: denies: Depression Exam - Vital Signs Reviewed Vital Signs: Yes Vital Signs: Vital Signs x48h Temp Pulse Resp BP Pulse Ox 12/27/23 07:53 36.6 C 82 18 110/65 95 - Physical Exam General Appearance: positive: No acute distress, Alert Eyes Bilateral: positive: No lid inflammation, Conjunctivae nml, No scleral icterus ENT: positive: No signs of dehydration Neck: positive: No JVD, Trachea midline Respiratory: positive: Chest non-tender, No respiratory distress, Breath sounds nml Cardiovascular: positive: Regular rate & rhythm, No murmur, No gallop Abdomen: positive: No organomegaly, Nml bowel sounds (Ever so slightly decreased), Tenderness (Primarily in the right lower quadrant). negative: Guarding, Rebound Skin: positive: Color nml, No rash, Warm, Dry Extremities: positive: Non-tender, Nml appearance Neurologic/Psychiatric: positive: Oriented x3, Motor nml, Sensation nml, Mood/affect nml Conclusion and Plan - Lab Results Laboratory Results 12/27/23 05:19: Sodium 132 L, Potassium 4.4, Chloride 95 L, Carbon Dioxide 30, Anion Gap 7.0, BUN 14, Creatinine 1.1, Estimated GFR (MDRD) 66 L, Glucose 116 H, Calcium 9.0 12/26/23 15:47: Sodium 132 L, Potassium 4.1, Chloride 95 L, Carbon Dioxide 29, Anion Gap 8.0, BUN 15, Creatinine 1.0, Estimated GFR (MDRD) 74 L, Glucose 115 H, Calcium 9.9, Magnesium 1.7, Total Bilirubin 1.2 H, AST 16, ALT 10, Alkaline Phosphatase 62, Total Protein 7.2, Albumin 4.3, Globulin 2.9, Albumin/Globulin Ratio 1.5, Lipase 31 12/26/23 15:47: WBC 9.6, RBC 5.03, Hgb 15.8, Hct 47.8, MCV 95.0 H, MCH 31.4 H, MCHC 33.1, RDW 12.3, Plt Count 246, MPV 9.5, Neut # (Auto) 8.1 H, Lymph # (Auto) 0.8 L, [place] # (Auto) 0.5, Eos # (Auto) 0.1, Baso # (Auto) 0.0, Absolute Nucleated RBC 0.00, Nucleated RBC % 0.0 - Diagnostic Imaging Results Diagnostic Imaging Results: positive: Final report reviewed, Read independently - Diagnosis Diagnosis: Small bowel obstruction in a 73-year-old male with no previous history of surgeryhe does not appear to be septic - Plan Plan: As I explained to the patient we are going to wait 24 hours to see whether or not there is spontaneous resolution of the small bowel obstruction if not an exploratory laparoscopy with adhesiolysis will be our plan. If the exploratory laparoscopy needs to be converted to a laparotomy this will be done. This of course depends on the operative findings. I discussed the possible operation with him explaining that there is always a risk of infection, bleeding requiring transfusion, and even but that these risks are low. Should the patient deteriorate between now and then I will operate emergently. I do not expect that this will be the case. I explained to the patient in order to try and help this resolve nonoperatively he should walk is much as possible. He states that he will. CPT 05732 This document was created in part using voice recognition technology. Because of the inherent limitations of the system, occasional same sounding word substitutions and grammatical errors do occur and persist despite proofreading. Please read this document for content.
[2023-12-27] MEDS: traZODone 50 MG TABLET PO SCH (20:12)
[2023-12-28 06:21] LABS: HCT - HEMATOCRIT 44.3 % (42.0-52.0); HGB - HEMOGLOBIN 15.1 g/dL (14.0-18.0); MEAN CORPUSCULAR HEMOGLOBIN 32.5 pg (27.0-31.0); MEAN CORPUSCULAR HGB CONC 34.1 g/dL (32.0-36.0); MEAN CORPUSCULAR VOLUME 95.5 fL (80.0-94.0); MEAN PLATELET VOLUME 9.8 fL (7.4-11.4); RED BLOOD COUNT 4.64 10^6/uL (4.70-6.10); RED CELL DISTRIBUTION WIDTH 12.5 % (12.0-15.0); WHITE BLOOD COUNT 6.7 x10^3/uL (4.8-10.8)
[2023-12-28 06:34] LABS: ALBUMIN 3.9 g/dL (3.2-5.5); ALBUMIN/GLOBULIN RATIO 1.5 (1.0-2.2); CALCIUM 9.2 mg/dL (8.5-10.3); CREATININE 1.1 mg/dL (0.6-1.3); POTASSIUM 4.1 mmol/L (3.5-4.5); TOTAL PROTEIN 6.5 g/dL (6.4-8.9)
--- NOTE | 2023-12-28 09:10 | PROVIDER PROGRESS NOTE ---
Assessment/Plan - Problem List (1) Small bowel obstruction Assessment/Plan: Patient admitted due to abdominal pain with confirmed SBO with transition point on imaging. Patient without prior history of SBO, and denies any prior abdominal surgeries. Continues to have colicky, crampy abdominal pain though he does have bowel sounds present on exam * Continues to have pain, 1 significant episode of emesis earlier this morning * Appreciated general surgery assistance, Dr Rodriguez, who has recommended exploratory laparotomy with adhesiolysis if SBO does not resolve by today, which it has not * Will continue IV fluids, as needed pain control, and await final decision regarding surgery and proceed accordingly (2) Dilated cbd, acquired Assessment/Plan: RUQ ultrasound obtained, which shows normal CBD and no other significant abnormalities (3) HLD (hyperlipidemia) Assessment/Plan: Given SBO, will limit any unnecessary PO meds - hold statin (4) BPH (benign prostatic hyperplasia) Assessment/Plan: Stable Resume flomax - Current Meds Current Meds: Current Medications Generic Name Dose Route Start Last Admin Trade Name Freq PRN Reason Stop Dose Admin Famotidine 20 mg 12/26/23 21:00 12/28/23 08:42 Famotidine 20 Mg/2 Ml Vial IVP 20 mg BID SOHAM Administration Sodium Chloride 1,000 mls @ 100 mls/hr 12/26/23 21:00 12/28/23 04:29 Normal Saline 0.9% IV 100 mls/hr .Q10H SOHAM Administration Ondansetron HCl 4 mg 12/26/23 20:04 12/28/23 05:34 Ondansetron 4 Mg/2 Ml Vial IVP 4 mg Q6HR PRN Administration Nausea / Vomiting Sodium Chloride 10 ml 12/27/23 01:00 12/28/23 08:42 Sodium Chloride Flush 0.9% 10 Ml Syringe IVP 10 ml 0100,0900,1700 SOHAM Administration Tamsulosin HCl 0.4 mg 12/27/23 11:00 12/28/23 08:43 Tamsulosin 0.4 Mg Capsule PO 0.4 mg DAILY SOHAM Administration Trazodone HCl 50 mg 12/27/23 21:00 12/27/23 20:12 Trazodone 50 Mg Tablet PO 50 mg QPM SOHAM Administration - Lab Result Lab results reviewed: Yes Fish Bone Diagrams: 12/28/23 06:07 12/28/23 06:07 - EKG Results EKG Interpreted Independently: Yes - Diagnostic Imaging Results Diagnostic Imaging Results: Final report reviewed - Additional Planning My Orders: My Active Orders 12/27/23 09:44 Acetaminophen [Tylenol] 650 mg PO Q4HR PRN 12/27/23 09:49 oxyCODONE [Roxicodone] 10 mg PO Q4HR PRN 12/27/23 11:00 Tamsulosin [Flomax] 0.4 mg PO DAILY 12/27/23 14:09 LORazepam INJ [Ativan Inj (Vial)] 0.5 mg IVP Q2H PRN 12/27/23 21:00 traZODone [Desyrel] 50 mg PO QPM 12/29/23 05:00 CBC W/O DIFF (HEMOGRAM) [HEME] DAILYLAB CMP [COMPREHENSIVE METABOLIC PANEL] [CHEM] DAILYLAB 12/30/23 05:00 CBC W/O DIFF (HEMOGRAM) [HEME] DAILYLAB CMP [COMPREHENSIVE METABOLIC PANEL] [CHEM] DAILYLAB Consult/Specialty: Surgery Subjective - Subjective Patient Reports: Abdominal Pain Nursing Reports: Vomitting Objective Vital Signs: Vital Signs - 24 hr 12/27/23 12/27/23 12/27/23 16:00 22:05 23:58 Temperature 36.6 C 36.7 C 36.8 C Heart Rate [ 86 108 H 100 Brachial] Respiratory 16 14 16 Rate Blood Pressure 118/97 H 109/80 109/73 [Right Brachial artery] O2 Saturation 95 93 94 12/28/23 08:00 Temperature 37.0 C Heart Rate [ 92 Brachial] Respiratory 18 Rate Blood Pressure 109/63 [Right Brachial artery] O2 Saturation 91 L Oxygen O2 Source Room air I&O (Last 24 Hrs): Intake and Output Totals x24h 12/26/23 12/27/23 12/28/23 23:59 23:59 23:59 Intake Total 2610.000 450 Output Total 2525 Balance 85.000 450 General: Alert, Oriented x3 HEENT: Atraumatic, EOMI Neuro: Alert, CN 2-12 Grossly Intact, Oriented Times 3 Cardiovascular: Regular rate, Normal S1, Normal S2 Respiratory: Chest non-tender, No respiratory distress, Breath sounds nml Abdomen: Normal bowel sounds, Other (Distended, generally tender) Extremities: No clubbing, No cyanosis, No edema Skin: No rashes - Results Results: Laboratory Results WBC 6.7 x10^3/uL (4.8-10.8) 12/28/23 06:07 RBC 4.64 10^6/uL (4.70-6.10) L 12/28/23 06:07 Hgb 15.1 g/dL (14.0-18.0) 12/28/23 06:07 Hct 44.3 % (42.0-52.0) 12/28/23 06:07 MCV 95.5 fL (80.0-94.0) H 12/28/23 06:07 MCH 32.5 pg (27.0-31.0) H 12/28/23 06:07 MCHC 34.1 g/dL (32.0-36.0) 12/28/23 06:07 RDW 12.5 % (12.0-15.0) 12/28/23 06:07 Plt Count 242 10^3/uL (130-450) 12/28/23 06:07 MPV 9.8 fL (7.4-11.4) 12/28/23 06:07 Neut # (Auto) 8.1 10^3/uL (1.5-6.6) H 12/26/23 15:47 Lymph # (Auto) 0.8 10^3/uL (1.5-3.5) L 12/26/23 15:47 [place] # (Auto) 0.5 10^3/uL (0.0-1.0) 12/26/23 15:47 Eos # (Auto) 0.1 10^3/uL (0.0-0.7) 12/26/23 15:47 Baso # (Auto) 0.0 10^3/uL (0.0-0.1) 12/26/23 15:47 Absolute Nucleated RBC 0.00 x10^3/uL 12/26/23 15:47 Nucleated RBC % 0.0 /100WBC 12/26/23 15:47 Sodium 136 mmol/L (135-145) 12/28/23 06:07 Potassium 4.1 mmol/L (3.5-4.5) 12/28/23 06:07 Chloride 97 mmol/L (101-111) L 12/28/23 06:07 Carbon Dioxide 32 mmol/L (21-32) 12/28/23 06:07 Anion Gap 7.0 (6-13) 12/28/23 06:07 BUN 18 mg/dL (6-20) 12/28/23 06:07 Creatinine 1.1 mg/dL (0.6-1.3) 12/28/23 06:07 Estimated GFR (MDRD) 66 (>89) L 12/28/23 06:07 Glucose 119 mg/dL (74-104) H 12/28/23 06:07 Calcium 9.2 mg/dL (8.5-10.3) 12/28/23 06:07 Magnesium 1.7 mg/dL (1.7-2.3) 12/26/23 15:47 Total Bilirubin 1.0 mg/dL (0.2-1.0) 12/28/23 06:07 AST 16 IU/L (10-42) 12/28/23 06:07 ALT 9 IU/L (10-60) L 12/28/23 06:07 Alkaline Phosphatase 58 IU/L (42-121) 12/28/23 06:07 Total Protein 6.5 g/dL (6.4-8.9) 12/28/23 06:07 Albumin 3.9 g/dL (3.2-5.5) 12/28/23 06:07 Globulin 2.6 g/dL (2.1-4.2) 12/28/23 06:07 Albumin/Globulin Ratio 1.5 (1.0-2.2) 12/28/23 06:07 Lipase 31 U/L (11-82) 12/26/23 15:47 ABX Reporting Has patient been on IV antibiotics over the past 48 hours?: No Current Medications - Current Medications Current Medications: Current Medications Generic Name Dose Route Start Last Admin Trade Name Freq PRN Reason Stop Dose Admin Famotidine 20 mg 12/26/23 21:00 12/28/23 08:42 Famotidine 20 Mg/2 Ml Vial IVP 20 mg BID SOHAM Administration Sodium Chloride 1,000 mls @ 100 mls/hr 12/26/23 21:00 12/28/23 04:29 Normal Saline 0.9% IV 100 mls/hr .Q10H SOHAM Administration Ondansetron HCl 4 mg 12/26/23 20:04 12/28/23 05:34 Ondansetron 4 Mg/2 Ml Vial IVP 4 mg Q6HR PRN Administration Nausea / Vomiting Sodium Chloride 10 ml 12/27/23 01:00 12/28/23 08:42 Sodium Chloride Flush 0.9% 10 Ml Syringe IVP 10 ml 0100,0900,1700 SOHAM Administration Tamsulosin HCl 0.4 mg 12/27/23 11:00 12/28/23 08:43 Tamsulosin 0.4 Mg Capsule PO 0.4 mg DAILY SOHAM Administration Trazodone HCl 50 mg 12/27/23 21:00 12/27/23 20:12 Trazodone 50 Mg Tablet PO 50 mg QPM SOHAM Administration
--- NOTE | 2023-12-28 10:50 | MISCELLANEOUS PROVIDER NOTE ---
Miscellaneous Provider Note - - Note: Patient did not have the passage of gas or stool in the past 24 hours and per discussion yesterday surgery is indicated to relieve the small bowel obstruction. As I explained to the patient the nature of the small bowel obstruction is unknown but it must be surgically addressed. Informed consent was obtained detailing the risks of the proposed procedure which is exploratory laparoscopy possible open laparotomy with possible bowel resection and/or ostomy. I went over the risks specifically bleeding with all of its risks including the risk of transfusion and reactions to the transfusion, infection, and even . The patient vocalized an understanding and wishes to proceed.
[2023-12-28] MEDS ORDERED: PROPOFOL 200 MG/20 ML VIAL IVP ONE (10:51)
[2023-12-28] MEDS ORDERED: MIDAZOLAM 2 MG/2 ML VIAL ONE (10:51)
[2023-12-28] MEDS ORDERED: fentaNYL 100 MCG/2 ML VIAL ONE (10:51)
[2023-12-28] MEDS ORDERED: SUCCINYLCHOLINE 200 MG/10 ML VIAL ONE (10:51)
[2023-12-28] MEDS ORDERED: ROCURONIUM 50 MG/5 ML VIAL ONE (10:51)
[2023-12-28] MEDS ORDERED: ceFAZolin 2 GM VIAL ONE (10:58)
[2023-12-28] MEDS ORDERED: ONDANSETRON 4 MG/2 ML VIAL IVP PRN (11:02)
[2023-12-28] MEDS ORDERED: ATROPINE ABBOJECT 1 MG/10 ML SYRINGE IVP PRN (11:02)
[2023-12-28] MEDS ORDERED: MORPHINE 2 MG/ML CARPUJECT IVP PRN ×2 (11:02→13:46)
[2023-12-28] MEDS ORDERED: NALOXONE 0.4 MG/ML VIAL IVP PRN (11:02)
[2023-12-28] MEDS ORDERED: fentaNYL 100 MCG/2 ML VIAL IVP PRN (11:02)
[2023-12-28] MEDS ORDERED: HYDROmorphone 0.5 MG/0.5 ML SYRINGE IVP PRN (11:02)
--- NOTE | 2023-12-28 11:02 | ANESTHESIA ---
Pre-Anesthesia VS, & Labs - Diagnosis Diagnosis Small bowel obstruction in a 73-year-old male with no previous history of surgeryhe does not appear to be septic - Procedure diagnostic laparoscopy Vital Signs: Temp Pulse Resp BP Pulse Ox O2 Flow Rate 37.0 C 92 18 109/63 91 L 12/28/23 08:00 12/28/23 08:00 12/28/23 08:00 12/28/23 08:00 12/28/23 08:00 Height: 6 ft 5 in Weight (kg): 87.5 kg Body Mass Index: 22.8 BMI Classification: Normal - NPO >8 hours - Lab Results Current Lab Results: Laboratory Tests 12/28/23 06:07: Sodium 136, Potassium 4.1, Chloride 97 L, Carbon Dioxide 32, Anion Gap 7.0, BUN 18, Creatinine 1.1, Estimated GFR (MDRD) 66 L, Glucose 119 H, Calcium 9.2, Total Bilirubin 1.0, AST 16, ALT 9 L, Alkaline Phosphatase 58, Total Protein 6.5, Albumin 3.9, Globulin 2.6, Albumin/Globulin Ratio 1.5 12/28/23 06:07: WBC 6.7, RBC 4.64 L, Hgb 15.1, Hct 44.3, MCV 95.5 H, MCH 32.5 H, MCHC 34.1, RDW 12.5, Plt Count 242, MPV 9.8 12/27/23 05:19: Sodium 132 L, Potassium 4.4, Chloride 95 L, Carbon Dioxide 30, Anion Gap 7.0, BUN 14, Creatinine 1.1, Estimated GFR (MDRD) 66 L, Glucose 116 H, Calcium 9.0 12/26/23 15:47: Sodium 132 L, Potassium 4.1, Chloride 95 L, Carbon Dioxide 29, Anion Gap 8.0, BUN 15, Creatinine 1.0, Estimated GFR (MDRD) 74 L, Glucose 115 H, Calcium 9.9, Magnesium 1.7, Total Bilirubin 1.2 H, AST 16, ALT 10, Alkaline Phosphatase 62, Total Protein 7.2, Albumin 4.3, Globulin 2.9, Albumin/Globulin Ratio 1.5, Lipase 31 12/26/23 15:47: WBC 9.6, RBC 5.03, Hgb 15.8, Hct 47.8, MCV 95.0 H, MCH 31.4 H, MCHC 33.1, RDW 12.3, Plt Count 246, MPV 9.5, Neut # (Auto) 8.1 H, Lymph # (Auto) 0.8 L, [place] # (Auto) 0.5, Eos # (Auto) 0.1, Baso # (Auto) 0.0, Absolute Nucleated RBC 0.00, Nucleated RBC % 0.0 Lab results reviewed: Yes Fish Bones: 12/28/23 06:07 12/28/23 06:07 Home Medications and Allergies Active Medications Acetaminophen (Acetaminophen 325 Mg Tablet) 650 mg PO Q4HR PRN PRN Reason: Pain or Fever > 38C (100.4F) Famotidine (Famotidine 20 Mg/2 Ml Vial) 20 mg IVP BID [facility] Last Admin: 12/28/23 08:42 Dose: 20 mg Hydromorphone HCl (Hydromorphone 0.5 Mg/0.5 Ml Syringe) 0.5 mg IVP Q2H PRN PRN Reason: Pain 8 to 10 Sodium Chloride (Normal Saline 0.9%) 1,000 mls @ 100 mls/hr IV .Q10H [facility] Last Admin: 12/28/23 04:29 Dose: 100 mls/hr Cefazolin Sodium 2 gm/ Sodium (Chloride) 100 mls @ 200 mls/hr IV ONCE ONE Stop: 12/28/23 11:17 Lorazepam (Lorazepam 2 Mg/Ml Vial) 0.5 mg IVP Q2H PRN PRN Reason: Alcohol Withdrawal Ondansetron HCl (Ondansetron 4 Mg/2 Ml Vial) 4 mg IVP Q6HR PRN PRN Reason: Nausea / Vomiting Last Admin: 12/28/23 05:34 Dose: 4 mg Oxycodone HCl (Oxycodone 5 Mg Tablet) 10 mg PO Q4HR PRN PRN Reason: Moderate Pain (Level 4-6) Sodium Chloride (Sodium Chloride Flush 0.9% 10 Ml Syringe) 10 ml IVP PRN PRN PRN Reason: NEEDED PER PROVIDER ORDERS Sodium Chloride (Sodium Chloride Flush 0.9% 10 Ml Syringe) 10 ml IVP 0100,0900,1700 [facility] Last Admin: 12/28/23 08:42 Dose: 10 ml Tamsulosin HCl (Tamsulosin 0.4 Mg Capsule) 0.4 mg PO DAILY [facility] Last Admin: 12/28/23 08:43 Dose: 0.4 mg Trazodone HCl (Trazodone 50 Mg Tablet) 50 mg PO QPM [facility] Last Admin: 12/27/23 20:12 Dose: 50 mg Atorvastatin [Lipitor] 10 mg PO DAILY 12/25/23 Tamsulosin HCl [Flomax] 0.4 mg PO DAILY 12/25/23 traZODone [Desyrel] 50 mg PO DAILY 12/25/23 Allergies/Adverse Reactions: Allergies Allergy/AdvReac Type Severity Reaction Status Date / Time No Known Drug Allergies Allergy Verified 12/26/23 15:30 Anes History & Medical History - Anesthetic History Anesthesia Complications: reports: No previous complications - Medical History Cardiovascular: reports: High cholesterol Pulmonary: reports: None Gastrointestinal: reports: GERD Urinary: reports: Benign prostate hypertrophy Neuro: reports: None Musculoskeletal: reports: None Endocrine/Autoimmune: reports: None Blood Disorders: reports: None Skin: reports: None Smoking Status: Never smoker (uses smokeless tobacco) Psychosocial: reports: Alcohol (daily 6-8 beers) History of Cancer?: No - Surgical History Orthopedic: reports: Knee replacement, Other (ankle fusion) Exam General: Alert, Oriented x3, Cooperative, No acute distress Dental: WNL Mouth Openin Fingerbreadth Neck Mobility: Normal Mallampati classification: II Thyromental Distance: 4-6 cm Mental/Cognitive Status: Alert/Oriented X3, Normal for patient Plan Anesthesia Type: General Consent for Procedure(s) Verified and Reviewed: Yes Code Status: Attempt Resuscitation ASA classification: 2-Mild systemic disease Is this case an emergency?: No
[2023-12-28] MEDS ORDERED: LIDOCAINE-MPF 1% 30 ML VIAL ONE (11:03)
[2023-12-28] MEDS ORDERED: BUPIVACAINE 0.5%-EPI 1:200000 PF 10 ML VIAL ONE (11:03)
[2023-12-28] MEDS ORDERED: PHENYLEPHRINE HCL 0.5 MG/5 ML AMPULE ONE (11:56)
[2023-12-28] MEDS ORDERED: LACTATED RINGERS 1,000 ML IV SCH (12:00)
[2023-12-28] MEDS: BUPIVACAINE 0.5%-EPI 1:200000 PF 30 ML VIAL SUBQ ONE (12:17)
[2023-12-28] MEDS ORDERED: ONDANSETRON 4 MG/2 ML VIAL ONE (12:40)
[2023-12-28] MEDS ORDERED: SUGAMMADEX 200 MG/2 ML VIAL IVP ONE (12:40)
[2023-12-28] MEDS ORDERED: ACETAMINOPHEN 1,000 MG/100 ML 1,000 MG/100 ML BAG IV ONE (12:42)
[2023-12-28] MEDS: LACTATED RINGERS 1,000 ML IV ONE (13:05)
--- NOTE | 2023-12-28 13:25 | OPERATIVE REPORT ---
Operative Report - General Admit Date: 12/26/23 Procedure Date: 12/28/23 Planned Procedure: Exploratory laparoscopy with laparoscopic adhesiolysis Pre-Op Diagnosis: Small bowel obstruction Procedure Performed: Laparoscopic adhesiolysis Post Op Diagnosis: Adhesive small bowel obstruction - Procedure Note Primary Surgeon: Del Rodriguez MD Anesthesia Provider: Efrain Amezcua CRNA Anesthesia Technique: General ET tube, Local (30 mL 1/2% marcaine with epinephrine) IV Fluids (mL): 800 Estimated Blood Loss (mL): 5 Drain/Tube Type: Other (None.) Indications: Small bowel obstruction Findings: Adhesive band 10-15 cm from ICV causing obstruction - Other Other Information/Narrative: After verbal and written informed consent was obtained detailing the operation, the alternatives to the operation including no operation, risks of infection, bleeding requiring transfusion with its risks, nerve injury, and and after I met with the patient confirming the surgery, the patient was brought to the operative suite and placed supine on the operating table. Great care was taken to avoid pressure points to prevent pressure necrosis or nerve injury. Monitoring devices were applied along with TEDs and pneumatic compressive stockings (to prevent DVT). The patient received preoperative antibiotics for surgical prophylaxis. Efrain Amezcua CRNA sedated and anesthetized the patient for the entire procedure. The patient was prepped and draped in usual sterile manner. A "time in" then confirmed that the patient was identified with 3 ident ifiers (name, date, and medical record number), the history and physical was in the chart, the signed consent confirming the procedure was in the chart, the patient was in the correct position, the aforementioned prophylactic measures were in place were given, we had the correct personnel and equipment to complete the procedure and that anesthesia, and the surgical team was given an opportunity to express any concerns. With the agreement of everyone in the room, we proceeded with the operation. The initial incision was at the umbilicus and dissection to the linea alba was completed using blunt dissection. The linea alba was grasped with a Luigi and gentle dissection allowed me to enter the abdomen through the fascia and peritoneum without incident. There was return of clear green fluid. It did not smell foul. In this location, a 5 mm port was placed and the abdominal cavity was insufflated with carbon dioxide to a steady-state pressure of 12 mmHg. 2 additional 5 mm ports were placed in standard locations for laparoscopic appendectomy (above and below the umbilicus at the midline) under direct vision of the 30 degree laparoscope and without incident. The patient was then placed in Trendelenburg position and was rotated slightly to their left. Examination of the right lower quadrant revealed numerous loops of small bowel that were dilated and slightly erythematous. In the middle of these loops were approximately 10 to 15 cm of decompressed small bowel. The appendix was clearly visualized and was visually normal. The cecum was also visualized and was visibly normal. Photographs were taken of both the appendix as well as the cecum as well as a clearly dilated small bowel loops. I tracked the ileum all the way to its entry point in the cecum and it was entirely normal. I then tracked the ileum proximally to the obstruction which was 2 bands in a cross configuration. Photographs were taken of the obstruction, of the appendix, of the cecum, of the dilated small bowel. The 2 bands were then lysed using application of the Ligasure and upon lysing these 2 bands it was clear that there was flow in the small bowel distally. The bowel was examined and there was no areas of vascularly compromised bowel. The right lower quadrant was then copiously irrigated using 2 L of warm sterile saline. I injected the port sites at the peritoneal, fascial, and skin levels under direct vision with 0.5% Marcaine with epinephrine. The abdomen was desufflated and all the ports removed.. As no large ports (10-12 mm) were used the fascia at all 3 sites was not approximated.. The skin at each port site was approximated using a subcuticular 4-0 Monocryl. The skin was cleaned of its prep and Dermabond was applied. At this point a "timeout" was performed that confirmed that all counts were correct, the procedure that was performed, the blood loss, the IV fluids administered, the patient's condition and any concerns of the operating team had. Dressings were then applied. Having tolerated the procedure well, the patient was extubated and taken to recovery room in good and stable condition. The plan is for discharge tomorrow after the patient has demonstrated the ability to take po without nausea and vomiting, when the pain is adequately controlled and when the patient is adequately recovered. CPT 34202 This document was created in part using voice recognition technology. Because of the inherent limitations of the system, occasional same sounding word substitutions and grammatical errors do occur and persist despite proofreading. Please read this document for context.
[2023-12-28] MEDS ORDERED: ZOLPIDEM 5 MG TABLET PO PRN (13:46)
[2023-12-28] MEDS ORDERED: IBUPROFEN 600 MG TABLET PO PRN (13:46)
[2023-12-28] MEDS ORDERED: SODIUM CHLORIDE FLUSH 0.9% 10 ML SYRINGE IVP PRN (13:46)
--- NOTE | 2023-12-28 14:17 | ANESTHESIA POST OP EVALUATION ---
Anesthesia Post Eval - Post Anesthesia Eval Vitals: Last Vital Signs Temp 36.2 C L 12/28/23 13:45 Pulse 85 12/28/23 13:45 Resp 18 12/28/23 13:45 BP 128/71 12/28/23 13:45 Pulse Ox 91 L 12/28/23 13:45 O2 Flow Rate CV Function Including HR & BP: Stable Pain Control: Satisfactory Nausea & Vomiting: Negative Mental Status: Baseline Respiratory Status: Airway Patent Hydration Status: Satisfactory Anesthesia Complications: None
[2023-12-28] MEDS: ceFAZolin (2G) 2 GM in SODIUM CHLORIDE 0.9% MINIBAG 100 ML IV ONE (14:30)
[2023-12-28] MEDS: SODIUM CHLORIDE FLUSH 0.9% 10 ML SYRINGE IVP SCH (20:04)
[2023-12-28] MEDS: FAMOTIDINE 20 MG/2 ML VIAL IVP SCH (20:10)
[2023-12-29 05:34] LABS: HCT - HEMATOCRIT 36.3 % (42.0-52.0); HGB - HEMOGLOBIN 12.2 g/dL (14.0-18.0); MEAN CORPUSCULAR HEMOGLOBIN 32.2 pg (27.0-31.0); MEAN CORPUSCULAR HGB CONC 33.6 g/dL (32.0-36.0); MEAN CORPUSCULAR VOLUME 95.8 fL (80.0-94.0); RED BLOOD COUNT 3.79 10^6/uL (4.70-6.10); RED CELL DISTRIBUTION WIDTH 12.3 % (12.0-15.0); WHITE BLOOD COUNT 4.9 x10^3/uL (4.8-10.8)
[2023-12-29 05:43] LABS: ALBUMIN/GLOBULIN RATIO 1.4 (1.0-2.2); BILIRUBIN,TOTAL 0.9 mg/dL (0.2-1.0); CREATININE 0.9 mg/dL (0.6-1.3); POTASSIUM 3.8 mmol/L (3.5-4.5); TOTAL PROTEIN 5.1 g/dL (6.4-8.9)
[2023-12-29] MEDS: ACETAMINOPHEN 325 MG TABLET PO PRN (08:41)
[2023-12-29] MEDS: HYDROcod/ACETAM 5/325 MG TABLET PO PRN (10:07)
[2023-12-29] MEDS: FAMOTIDINE 20 MG TABLET PO SCH (10:08)
[2023-12-29] MEDS: ONDANSETRON ODT 4 MG TABLET TL PRN (10:30)
[2023-12-29] MEDS: oxyCODONE 5 MG TABLET PO PRN (13:21)
--- NOTE | 2023-12-29 15:02 | PROVIDER PROGRESS NOTE ---
Subjective - General Admit Date: 12/26/23 Procedure Date: 12/28/23 Post Op Days: 1 Procedure Performed: Laparoscopic adhesiolysis - Review of Systems Wound/Incisions: positive: Dressing dry and intact General: positive: Fatigue HEENT: positive: Eye pain, Dysphasia, Sinus congestion Pulmonary: positive: No symptoms. negative: Shortness of breath, Pleuritic chest pain Cardiovascular: positive: No symptoms Gastrointestinal: positive: Abdominal pain (Minimal but slight bloating with some bowel movements.). negative: Nausea, Vomiting Musculoskeletal: positive: No symptoms Skin: positive: No symptoms Psychiatric: positive: No symptoms All Other Systems: positive: Reviewed and negative Objective - Patient Data Reviewed Vital Signs: Yes Vital Signs: Vital Signs x48h Temp Pulse Resp BP Pulse Ox 12/29/23 12:25 36.4 C L 73 18 97/54 L 93 12/29/23 10:04 37.1 C 12/29/23 09:11 37.1 C 12/29/23 07:45 37.0 C 82 18 111/61 93 Weight: Weight 12/27/23 12/28/23 12/29/23 23:59 23:59 23:59 Weight (kg) 87.5 kg Intake & Output: Intake and Output Totals x24h 12/27/23 12/28/23 12/29/23 23:59 23:59 23:59 Intake Total 2610.000 2255.333 1316.667 Output Total 2525 550 Balance 85.000 2255.333 766.667 - Lab Results Lab Results: 12/29/23 04:45 12/29/23 04:45 Other Lab Results: Lab Results x24hrs 12/29/23 12/29/23 Range/Units 04:45 04:45 WBC 4.9 (4.8-10.8) x10^3/uL RBC 3.79 L (4.70-6.10) 10^6/uL Hgb 12.2 L (14.0-18.0) g/dL Hct 36.3 L (42.0-52.0) % MCV 95.8 H (80.0-94.0) fL MCH 32.2 H (27.0-31.0) pg MCHC 33.6 (32.0-36.0) g/dL RDW 12.3 (12.0-15.0) % Plt Count 167 (130-450) 10^3/uL MPV 10.0 (7.4-11.4) fL Sodium 133 L (135-145) mmol/L Potassium 3.8 (3.5-4.5) mmol/L Chloride 98 L (101-111) mmol/L Carbon Dioxide 31 (21-32) mmol/L Anion Gap 4.0 L (6-13) BUN 16 (6-20) mg/dL Creatinine 0.9 (0.6-1.3) mg/dL Estimated GFR (MDRD) 83 L (>89) Glucose 102 (74-104) mg/dL Calcium 8.0 L (8.5-10.3) mg/dL Total Bilirubin 0.9 (0.2-1.0) mg/dL AST 16 (10-42) IU/L ALT 7 L (10-60) IU/L Alkaline Phosphatase 41 L (42-121) IU/L Total Protein 5.1 L (6.4-8.9) g/dL Albumin 3.0 L (3.2-5.5) g/dL Globulin 2.1 (2.1-4.2) g/dL Albumin/Globulin Ratio 1.4 (1.0-2.2) - Current Medications Current Medications: Current Medications Generic Name Dose Route Start Last Admin Trade Name Freq PRN Reason Stop Dose Admin Acetaminophen 650 mg 12/27/23 09:44 12/29/23 08:41 Acetaminophen 325 Mg Tablet PO 650 mg Q4HR PRN Administration Pain or Fever > 38C (100.4F) Hydrocodone Bitart/Acetaminophen 1 tab 12/28/23 13:46 12/29/23 10:07 Hydrocod/Acetam 5/325 Mg Tablet PO 1 tab Q4HR PRN Administration Pain 5 to 7 Famotidine 20 mg 12/29/23 09:00 12/29/23 10:08 Famotidine 20 Mg Tablet PO 20 mg BID SOHAM Administration Ondansetron HCl 4 mg 12/26/23 20:04 12/28/23 05:34 Ondansetron 4 Mg/2 Ml Vial IVP 4 mg Q6HR PRN Administration Nausea / Vomiting Ondansetron HCl 4 mg 12/29/23 10:16 12/29/23 10:30 Ondansetron Odt 4 Mg Tablet TL 4 mg Q4HR PRN Administration Nausea / Vomiting Oxycodone HCl 10 mg 12/27/23 09:49 12/29/23 13:21 Oxycodone 5 Mg Tablet PO 10 mg Q4HR PRN Administration Moderate Pain (Level 4-6) Sodium Chloride 10 ml 12/28/23 17:00 12/29/23 10:05 Sodium Chloride Flush 0.9% 10 Ml Syringe IVP Not Given 0100,0900,1700 [facility] Tamsulosin HCl 0.4 mg 12/27/23 11:00 12/29/23 08:41 Tamsulosin 0.4 Mg Capsule PO 0.4 mg DAILY SOHAM Administration Trazodone HCl 50 mg 12/27/23 21:00 12/28/23 20:09 Trazodone 50 Mg Tablet PO 50 mg QPM SOHAM Administration - Physical Exam Wound/Incisions: positive: Healing well General Appearance: positive: No acute distress, Alert Eyes Bilateral: positive: No lid inflammation, Conjunctivae nml, No scleral icterus ENT: positive: No signs of dehydration Neck: positive: Trachea midline Respiratory: positive: Chest non-tender, No respiratory distress, Breath sounds nml Cardiovascular: positive: Regular rate & rhythm Abdomen: positive: Other (Bloated and tympanic with bowel sounds.) Skin: positive: Color nml, No rash, Warm, Dry Extremities: positive: Nml appearance. negative: Calf tenderness Neurologic/Psychiatric: positive: Oriented x3, Motor nml, Sensation nml, Mood/affect nml ABX Reporting Has patient been on IV antibiotics over the past 48 hours?: Yes Impression/Plan - Problem List Problem List: D1 s/p laparoscopic adhesiolysis Patient not tolerating oral intake well enough. Abdomen bloated with some bowel function but not normalized yet. Continue IVF and pain relief.
[2023-12-29 15:47] VITALS: O2SAT 94
[2023-12-29] MEDS: SIMETHICONE 40 MG/0.6 ML 30 ML BOTTLE PO PRN (16:42)
--- NOTE | 2023-12-29 18:00 | PROVIDER PROGRESS NOTE ---
Assessment/Plan - Problem List (1) Small bowel obstruction Assessment/Plan: Resolved Still with significant abdominal discomfort and moderate intolerance to food Discussed patient with Dr. Carroll, general surgery, whose assistance is greatly appreciated Making progress, but will keep overnight for further improvement and better pain control (2) HLD (hyperlipidemia) Assessment/Plan: Stable Resume home meds (3) BPH (benign prostatic hyperplasia) Assessment/Plan: Stable Cont flomax - Current Meds Current Meds: Current Medications Generic Name Dose Route Start Last Admin Trade Name Freq PRN Reason Stop Dose Admin Acetaminophen 650 mg 12/27/23 09:44 12/29/23 08:41 Acetaminophen 325 Mg Tablet PO 650 mg Q4HR PRN Administration Pain or Fever > 38C (100.4F) Hydrocodone Bitart/Acetaminophen 1 tab 12/28/23 13:46 12/29/23 10:07 Hydrocod/Acetam 5/325 Mg Tablet PO 1 tab Q4HR PRN Administration Pain 5 to 7 Famotidine 20 mg 12/29/23 09:00 12/29/23 10:08 Famotidine 20 Mg Tablet PO 20 mg BID SOHAM Administration Ondansetron HCl 4 mg 12/26/23 20:04 12/28/23 05:34 Ondansetron 4 Mg/2 Ml Vial IVP 4 mg Q6HR PRN Administration Nausea / Vomiting Ondansetron HCl 4 mg 12/29/23 10:16 12/29/23 17:29 Ondansetron Odt 4 Mg Tablet TL 4 mg Q4HR PRN Administration Nausea / Vomiting Oxycodone HCl 10 mg 12/27/23 09:49 12/29/23 13:21 Oxycodone 5 Mg Tablet PO 10 mg Q4HR PRN Administration Moderate Pain (Level 4-6) Simethicone 80 mg 12/29/23 16:29 12/29/23 16:42 Simethicone 40 Mg/0.6 Ml 30 Ml Bottle PO 80 mg Q6HR PRN Administration Gas Sodium Chloride 10 ml 12/28/23 17:00 12/29/23 16:37 Sodium Chloride Flush 0.9% 10 Ml Syringe IVP Not Given 0100,0900,1700 [facility] Tamsulosin HCl 0.4 mg 12/27/23 11:00 12/29/23 08:41 Tamsulosin 0.4 Mg Capsule PO 0.4 mg DAILY SOHAM Administration Trazodone HCl 50 mg 12/27/23 21:00 12/28/23 20:09 Trazodone 50 Mg Tablet PO 50 mg QPM SOHAM Administration - Lab Result Fish Bone Diagrams: 12/29/23 04:45 12/29/23 04:45 - EKG Results EKG Interpreted Independently: Yes - Additional Planning My Orders: My Active Orders 12/29/23 09:00 Famotidine [Pepcid] 20 mg PO BID 12/29/23 10:16 Ondansetron Odt [Zofran Odt] 4 mg TL Q4HR PRN 12/30/23 05:00 CBC W/O DIFF (HEMOGRAM) [HEME] DAILYLAB CMP [COMPREHENSIVE METABOLIC PANEL] [CHEM] DAILYLAB Consult/Specialty: Surgery Subjective - Subjective Patient Reports: Abdominal Pain, Other (Bloating) Nursing Reports: Nausea Objective Vital Signs: Vital Signs - 24 hr 12/28/23 12/28/23 12/29/23 20:13 23:52 05:24 Temperature 37.2 C 37.4 C 37.1 C Heart Rate [ 107 H 94 78 Brachial] Respiratory 20 18 18 Rate Blood Pressure 98/55 L [Left Brachial artery] Blood Pressure 120/68 88/52 L [Right Brachial artery] O2 Saturation 90 L 93 93 12/29/23 12/29/23 12/29/23 05:31 07:45 09:11 Temperature 37.0 C 37.1 C Heart Rate [ 87 82 Brachial] Respiratory 18 Rate Blood Pressure [Left Brachial artery] Blood Pressure 101/55 L 111/61 [Right Brachial artery] O2 Saturation 93 12/29/23 12/29/23 12/29/23 10:04 12:25 15:38 Temperature 37.1 C 36.4 C L 36.6 C Heart Rate [ 73 78 Brachial] Respiratory 18 12 Rate Blood Pressure [Left Brachial artery] Blood Pressure 97/54 L 125/73 [Right Brachial artery] O2 Saturation 93 94 Oxygen O2 Source Room air I&O (Last 24 Hrs): Intake and Output Totals x24h 12/27/23 12/28/23 12/29/23 23:59 23:59 23:59 Intake Total 2610.000 2255.333 1316.667 Output Total 2525 1250 Balance 85.000 2255.333 66.667 General: Alert, Oriented x3, No acute distress HEENT: Atraumatic, EOMI Neuro: Alert, CN 2-12 Grossly Intact, Oriented Times 3 Cardiovascular: Regular rate, Normal S1, Normal S2 Abdomen: Normal bowel sounds, Other (Moderately distended, moderately tense) Extremities: No clubbing, No cyanosis, No edema Skin: No rashes - Results Results: Laboratory Results WBC 4.9 x10^3/uL (4.8-10.8) 12/29/23 04:45 RBC 3.79 10^6/uL (4.70-6.10) L 12/29/23 04:45 Hgb 12.2 g/dL (14.0-18.0) L 12/29/23 04:45 Hct 36.3 % (42.0-52.0) L 12/29/23 04:45 MCV 95.8 fL (80.0-94.0) H 12/29/23 04:45 MCH 32.2 pg (27.0-31.0) H 12/29/23 04:45 MCHC 33.6 g/dL (32.0-36.0) 12/29/23 04:45 RDW 12.3 % (12.0-15.0) 12/29/23 04:45 Plt Count 167 10^3/uL (130-450) 12/29/23 04:45 MPV 10.0 fL (7.4-11.4) 12/29/23 04:45 Neut # (Auto) 8.1 10^3/uL (1.5-6.6) H 12/26/23 15:47 Lymph # (Auto) 0.8 10^3/uL (1.5-3.5) L 12/26/23 15:47 [place] # (Auto) 0.5 10^3/uL (0.0-1.0) 12/26/23 15:47 Eos # (Auto) 0.1 10^3/uL (0.0-0.7) 12/26/23 15:47 Baso # (Auto) 0.0 10^3/uL (0.0-0.1) 12/26/23 15:47 Absolute Nucleated RBC 0.00 x10^3/uL 12/26/23 15:47 Nucleated RBC % 0.0 /100WBC 12/26/23 15:47 Sodium 133 mmol/L (135-145) L 12/29/23 04:45 Potassium 3.8 mmol/L (3.5-4.5) 12/29/23 04:45 Chloride 98 mmol/L (101-111) L 12/29/23 04:45 Carbon Dioxide 31 mmol/L (21-32) 12/29/23 04:45 Anion Gap 4.0 (6-13) L 12/29/23 04:45 BUN 16 mg/dL (6-20) 12/29/23 04:45 Creatinine 0.9 mg/dL (0.6-1.3) 12/29/23 04:45 Estimated GFR (MDRD) 83 (>89) L 12/29/23 04:45 Glucose 102 mg/dL (74-104) 12/29/23 04:45 Calcium 8.0 mg/dL (8.5-10.3) L 12/29/23 04:45 Magnesium 1.7 mg/dL (1.7-2.3) 12/26/23 15:47 Total Bilirubin 0.9 mg/dL (0.2-1.0) 12/29/23 04:45 AST 16 IU/L (10-42) 12/29/23 04:45 ALT 7 IU/L (10-60) L 12/29/23 04:45 Alkaline Phosphatase 41 IU/L (42-121) L 12/29/23 04:45 Total Protein 5.1 g/dL (6.4-8.9) L 12/29/23 04:45 Albumin 3.0 g/dL (3.2-5.5) L 12/29/23 04:45 Globulin 2.1 g/dL (2.1-4.2) 12/29/23 04:45 Albumin/Globulin Ratio 1.4 (1.0-2.2) 12/29/23 04:45 Lipase 31 U/L (11-82) 12/26/23 15:47 ABX Reporting Has patient been on IV antibiotics over the past 48 hours?: No Current Medications - Current Medications Current Medications: Current Medications Generic Name Dose Route Start Last Admin Trade Name Freq PRN Reason Stop Dose Admin Acetaminophen 650 mg 12/27/23 09:44 12/29/23 08:41 Acetaminophen 325 Mg Tablet PO 650 mg Q4HR PRN Administration Pain or Fever > 38C (100.4F) Hydrocodone Bitart/Acetaminophen 1 tab 12/28/23 13:46 12/29/23 10:07 Hydrocod/Acetam 5/325 Mg Tablet PO 1 tab Q4HR PRN Administration Pain 5 to 7 Famotidine 20 mg 12/29/23 09:00 12/29/23 10:08 Famotidine 20 Mg Tablet PO 20 mg BID SOHAM Administration Ondansetron HCl 4 mg 12/26/23 20:04 12/28/23 05:34 Ondansetron 4 Mg/2 Ml Vial IVP 4 mg Q6HR PRN Administration Nausea / Vomiting Ondansetron HCl 4 mg 12/29/23 10:16 12/29/23 17:29 Ondansetron Odt 4 Mg Tablet TL 4 mg Q4HR PRN Administration Nausea / Vomiting Oxycodone HCl 10 mg 12/27/23 09:49 12/29/23 13:21 Oxycodone 5 Mg Tablet PO 10 mg Q4HR PRN Administration Moderate Pain (Level 4-6) Simethicone 80 mg 12/29/23 16:29 12/29/23 16:42 Simethicone 40 Mg/0.6 Ml 30 Ml Bottle PO 80 mg Q6HR PRN Administration Gas Sodium Chloride 10 ml 12/28/23 17:00 12/29/23 16:37 Sodium Chloride Flush 0.9% 10 Ml Syringe IVP Not Given 0100,0900,1700 SOHAM Tamsulosin HCl 0.4 mg 12/27/23 11:00 12/29/23 08:41 Tamsulosin 0.4 Mg Capsule PO 0.4 mg DAILY SOHAM Administration Trazodone HCl 50 mg 12/27/23 21:00 12/28/23 20:09 Trazodone 50 Mg Tablet PO 50 mg QPM SOHAM Administration
[2023-12-30 05:27] LABS: HCT - HEMATOCRIT 36.9 % (42.0-52.0); MEAN CORPUSCULAR HEMOGLOBIN 31.6 pg (27.0-31.0); MEAN CORPUSCULAR HGB CONC 32.5 g/dL (32.0-36.0); MEAN CORPUSCULAR VOLUME 97.1 fL (80.0-94.0); MEAN PLATELET VOLUME 9.8 fL (7.4-11.4); RED BLOOD COUNT 3.8 10^6/uL (4.70-6.10); WHITE BLOOD COUNT 3.7 x10^3/uL (4.8-10.8)
[2023-12-30 05:44] LABS: ALBUMIN 3.1 g/dL (3.2-5.5); ALBUMIN/GLOBULIN RATIO 1.3 (1.0-2.2); BILIRUBIN,TOTAL 0.7 mg/dL (0.2-1.0); CALCIUM 8.6 mg/dL (8.5-10.3); CREATININE 0.9 mg/dL (0.6-1.3); POTASSIUM 3.8 mmol/L (3.5-4.5); TOTAL PROTEIN 5.5 g/dL (6.4-8.9)
[2023-12-30 08:14] VITALS: BP 97/58
--- NOTE | 2023-12-30 16:56 | DISCHARGE SUMMARY ---
"Discharge Summary Admit Date: 12/26/23 Discharge Date: 12/30/23 Discharging Provider: Dr Del Rodriguez Code Status: Attempt Resuscitation Condition at Discharge: Good Discharge Disposition: 01 Home, Self Care - DIAGNOSES Admission Diagnoses: Small bowel obstruction HLD BPH Discharge Diagnoses with Status of Each Condition: Small bowel obstruction - Resolved HLD - Stable BPH - Stable - HPI History of Present Illness: Mr Butler is a 73 yo M with history of HLD, diverticulosis/diverticulitis. He denies any prior history of abdominal surgeries, no prior history of SBO. He presents to the ER with c/o abdominal pain onset 2 days ago, throbbing, intermittent, aching, up to 8/10 pain at times, lasts a few seconds at a time. He was seen yesterday for suspected ileus, today pain worsened and associated with nausea so he returned to the ER. CT scan shows small bowel obstruction at d istal ileum. Denies vomiting, feels nauseous. Poor appetite since yesterday. Last BM on Saturday morning (after taking a laxative). He has been constipated few days prior, constipation is new. Denies blood in stool. Denies dark/tarry stool. Denies fevers/chills. Last colonoscopy ~1 year ago in [place] with polypectomy. Currently pain is 3/10, much improved, placement of NG tube in ER and he has received IV dilaudid. - CONSULTS | PROCEDURES Consultations: General surgery Procedures: Laparoscopic adhesiolysis - HOSPITAL COURSE Hospital Course: Patient was admitted to the medical surge floor. He was given a nasogastric tube which was kept on low intermittent suction and had significant output over the first night of admission. On the second night of admission the NG tube accidentally came out once. He had significant vomiting and he was taken to surgery the next day for laparoscopic adhesiolysis. He tolerated the surgery well and had significant improvement of his symptoms but on the first day after surgery he still had some significant weakness and difficulty tolerating a diet so he was kept 1 more night for further observation. On the day of discharge, postop day 2, he was doing much better and able to tolerate a regular diet and was seen walking the halls without any assistance. He was deemed to be medically stable for discharge. - ALLERGIES Allergies/Adverse Reactions: Allergies Allergy/AdvReac Type Severity Reaction Status Date / Time No Known Drug Allergies Allergy Verified 12/26/23 15:30 - MEDICATIONS Home Medications: Ambulatory Orders Medication Instructions Recorded Confirmed Atorvastatin [Lipitor] 10 mg PO DAILY 12/25/23 12/27/23 Dicyclomine [Bentyl] 20 mg PO QID PRN #30 cap 12/25/23 12/27/23 Ondansetron Odt [Zofran] 4 mg TL Q6H PRN #10 tablet 12/25/23 12/27/23 Tamsulosin HCl [Flomax] 0.4 mg PO DAILY 12/25/23 12/27/23 traZODone [Desyrel] 50 mg PO DAILY 12/25/23 12/27/23 - PHYSICAL EXAM AT DISCHARGE General Appearance: positive: No acute distress Eyes Bilateral: positive: Normal inspection Respiratory: positive: Chest non-tender, No respiratory distress, Breath sounds nml Cardiovascular: positive: Regular rate & rhythm, No murmur, No gallop Abdomen: positive: No organomegaly, Nml bowel sounds, Other (Moderate generalized abdominal tenderness, improved distention, well-healing laparoscopic port wounds) Neurologic/Psychiatric: positive: Oriented x3, CN's nml (2-12), Motor nml - LABS Result Diagrams: 12/30/23 05:19 12/30/23 05:19 - SEPSIS Current Stage of Sepsis: Ruled out - TIME SPENT Time Spent in Discharge (Minutes): 35"
== END 2023-12-30 13:45 | disposition home or self-care (01) | DRG 337 ==
LOC: ED 15:16 → MS2 20:04
PROVIDERS: ADMIT Student in an Organized Health Care Education/Training Program; ATTEND Family Medicine Sports Medicine
PROC: 0DN84ZZ Release Small Intestine, Percutaneous Endoscopic Approach (ICD-10-PCS; principal; 2023-12-28 11:15)
DX: K56.609 Unspecified intestinal obstruction, unspecified as to partial versus complete obstruction (principal); E87.1 Hypo-osmolality and hyponatremia; K83.8 Other specified diseases of biliary tract; E78.5 Hyperlipidemia, unspecified; K56.50 Intestinal adhesions [bands], unspecified as to partial versus complete obstruction; N40.0 Benign prostatic hyperplasia without lower urinary tract symptoms; K59.00 Constipation, unspecified; E78.00 Pure hypercholesterolemia, unspecified; Z79.899 Other long term (current) drug therapy; Z86.010 Personal history of colon polyps
CPT/HCPCS: 36415; 74018; 74177; 76705; 80048; 80053; 83690; 83735; 85025; 85027; 96374; 96376; 99285; A9270; J0131; J0330; J1170; J2372; J7120; Q0162; Q9963; Q9967

== ENCOUNTER 2023-12-31 17:47 | Inpatient (IN) | payer MEDICARE ==
[2023-12-31 18:17] LABS: BASOPHILS % (AUTO) 0.5 %; EOSINOPHILS # (AUTO) 0.1 10^3/uL (0.0-0.7); EOSINOPHILS % (AUTO) 1.4 %; HCT - HEMATOCRIT 48.5 % (42.0-52.0); HGB - HEMOGLOBIN 15.9 g/dL (14.0-18.0); LYMPHOCYTES # (AUTO) 0.8 10^3/uL (1.5-3.5); LYMPHOCYTES % (AUTO) 10.5 %; MEAN CORPUSCULAR HEMOGLOBIN 31.4 pg (27.0-31.0); MEAN CORPUSCULAR HGB CONC 32.8 g/dL (32.0-36.0); MEAN CORPUSCULAR VOLUME 95.7 fL (80.0-94.0); MEAN PLATELET VOLUME 9.7 fL (7.4-11.4); MONOCYTES % (AUTO) 12.5 %; NEUTROPHILS # (AUTO) 5.9 10^3/uL (1.5-6.6); NEUTROPHILS % (AUTO) 74.7 %; PLT - PLATELET COUNT 348 10^3/uL (130-450); RED BLOOD COUNT 5.07 10^6/uL (4.70-6.10); RED CELL DISTRIBUTION WIDTH 11.9 % (12.0-15.0); WHITE BLOOD COUNT 7.9 x10^3/uL (4.8-10.8)
--- NOTE | 2023-12-31 18:20 | ED Physician Documentation ---
PD HPI ABD PAIN - Stated complaint Stated Complaint: VOMIT - History obtained from History obtained from: Patient, Family - Additional information Additional information: 73-year-old gentleman admitted on the of this month for a small bowel obstruction. Has a history of hyperlipidemia and diverticulosis/diverticulitis. Subsequently required operative management with a laparoscopic adhesiolysis done on the . Sounds like he did relatively well postop and was eating and pooping when he left yesterday but yesterday evening started vomiting and has not been able to keep anything down today with diffuse abdominal pain. He cont acted Dr. Rodriguez who directed him back to the emergency department for likely admission for ileus. PD PAST MEDICAL HISTORY - Past Medical History Cardiovascular: High cholesterol Respiratory: None Neuro: None Endocrine/Autoimmune: None GI: GERD : Benign prostate hypertrophy HEENT: None Psych: None, Other Musculoskeletal: None Derm: None - Past Surgical History Past Surgical History: Yes Ortho: Knee replacement, Other (ankle fusion) - Present Medications Home Medications: Ambulatory Orders Medication Instructions Recorded Confirmed Atorvastatin [Lipitor] 10 mg PO DAILY 12/25/23 12/27/23 Dicyclomine [Bentyl] 20 mg PO QID PRN #30 cap 12/25/23 12/27/23 Ondansetron Odt [Zofran] 4 mg TL Q6H PRN #10 tablet 12/25/23 12/27/23 Tamsulosin HCl [Flomax] 0.4 mg PO DAILY 12/25/23 12/27/23 traZODone [Desyrel] 50 mg PO DAILY 12/25/23 12/27/23 - Allergies Allergies/Adverse Reactions: Allergies Allergy/AdvReac Type Severity Reaction Status Date / Time No Known Drug Allergies Allergy Verified 12/31/23 18:26 - Social History Does the pt smoke?: No Smoking Status: Never smoker (uses smokeless tobacco) Does the pt drink ETOH?: Yes Does the pt have substance abuse?: No - Immunizations Immunizations are current?: Yes - POLST Patient has POLST: No PD ED PE NORMAL - Vitals Vital signs reviewed: Yes - General General: Alert and oriented X 3, Other (He appears uncomfortable) - Cardiac Cardiac: RRR, No murmur - Respiratory Respiratory: No respiratory distress, Clear bilaterally - Abdomen Abdomen: Other (High-pitched bowel sounds with mild diffuse tenderness. No surgical signs.) - Extremities Extremities: No edema, No calf tenderness / cord - Neuro Neuro: Alert and oriented X 3, Normal speech Results - Vitals Vitals: Vital Signs - 24 hr 12/31/23 18:19 Temperature 36.1 C L Heart Rate 65 Respiratory 20 Rate Blood Pressure 131/78 H O2 Saturation 96 Oxygen O2 Source Room air - Labs Labs: Laboratory Tests 12/31/23 12/31/23 18:09 18:09 WBC 7.9 RBC 5.07 Hgb 15.9 Hct 48.5 MCV 95.7 H MCH 31.4 H MCHC 32.8 RDW 11.9 L Plt Count 348 MPV 9.7 Neut # (Auto) 5.9 Lymph # (Auto) 0.8 L [place] # (Auto) 1.0 Eos # (Auto) 0.1 Baso # (Auto) 0.0 Absolute Nucleated RBC 0.00 Nucleated RBC % 0.0 Sodium 130 L Potassium 3.9 Chloride 89 L Carbon Dioxide 31 Anion Gap 10.0 BUN 10 Creatinine 1.0 Estimated GFR (MDRD) 74 L Glucose 147 H Calcium 9.4 Total Bilirubin 0.7 AST 18 ALT 12 Alkaline Phosphatase 50 Total Protein 6.9 Albumin 3.8 Globulin 3.1 Albumin/Globulin Ratio 1.2 PD Medical Decision Making - ED course Complexity details: reviewed results (CBC unremarkable; cmp with mild hypona and hyperglycemia) ED course: Dr. Rodriguez contact me prior to arrival and we discussed the case after his arrival. He did not feel the patient needed imaging just a inpatient stay for postoperative ileus and deferred to the hospitalist for admission, and I spoke with Dr. Longoria for same at 6:20 PM. Departure - Departure Disposition: ED Place in Observation Clinical Impression: Ileus, postoperative Condition: Stable
[2023-12-31] MEDS: METOCLOPRAMIDE 10 MG/2 ML VIAL IVP STA (18:26)
[2023-12-31] MEDS: SODIUM CHLORIDE 0.9% 1,000 ML IV STA (18:26)
[2023-12-31] MEDS: HYDROmorphone 1 MG/ML CARPUJECT IVP STA (18:26)
[2023-12-31 18:27] LABS: ALBUMIN 3.8 g/dL (3.2-5.5); ALBUMIN/GLOBULIN RATIO 1.2 (1.0-2.2); BILIRUBIN,TOTAL 0.7 mg/dL (0.2-1.0); CALCIUM 9.4 mg/dL (8.5-10.3); POTASSIUM 3.9 mmol/L (3.5-4.5); TOTAL PROTEIN 6.9 g/dL (6.4-8.9)
[2023-12-31] MEDS ORDERED: SODIUM CHLORIDE FLUSH 0.9% 10 ML SYRINGE IVP PRN (18:37)
[2023-12-31] MEDS ORDERED: HYDROmorphone 0.5 MG/0.5 ML SYRINGE IM PRN (18:37)
--- NOTE | 2023-12-31 18:48 | HISTORY & PHYSICAL EXAMINATION ---
Chief Complaint - Chief Complaint Chief Complaint: vomiting History of Present Illness - Admitted From Admitted From:: [facility]- [facility] - History Obtained From Records Reviewed: admission 12/26/23-12/30/23 History obtained from: patient and spouse - History of Present Illness HPI Comment/Other: 73-year-old male who is postop day 3 from exploratory laparoscopy with laparoscopic lysis of adhesions. Intraoperative findings were an adhesive band 10 to 15 cm from the ileocecal valve causing obstruction. Patient had no previous surgical history. He was discharged to home yesterday. Went home and tolerated several saltines and water without vomiting. Went to bed, had a small bowel movement during the night and woke up feeling relatively well rested today but continued to feel nauseated. He has had small amounts of p.o. intake today but has had several episodes of vomiting the last being about 5 hours prior to now. He states that he last passed gas several hours ago. He is not having any severe abdominal pain. He does feel like his abdomen is distended. He has not been running any fevers. He denies any chest pain. he denies any shortness of breath. He states that he feels that he has been urinating normally today and that his urine is not dark in color. History - Past Medical History Cardiovascular: reports: High cholesterol Respiratory: reports: None Neuro: reports: None Endocrine/Autoimmune: reports: None GI: reports: GERD : reports: Benign prostate hypertrophy HEENT: reports: None Psych: reports: None, Other Musculoskeletal: reports: None Derm: reports: None MRSA Hx?: No - Past Surgical History General: reports: Bowel surgery Ortho: reports: Knee replacement, Other (ankle fusion) - Family & Social History Family History: Mother: Alzheimer's Disease (age 92), Father: (83- unknown cause) Living arrangement: At home Living Situation: With spouse/s.o. (lives 5 months of the year in [place]- other part of the year [place]) - Substance History Use: Uses substance without health or social issues: Alcohol (6-8 beers/day. none since became sick with bowel obstruction) - POLST Patient has POLST: No POLST Status: DNR (discussed briefly with patient.) Meds/Allgy - Home Medications Home Medications: Ambulatory Orders Medication Instructions Recorded Confirmed Atorvastatin [Lipitor] 10 mg PO DAILY 12/25/23 12/27/23 Dicyclomine [Bentyl] 20 mg PO QID PRN #30 cap 12/25/23 12/27/23 Ondansetron Odt [Zofran] 4 mg TL Q6H PRN #10 tablet 12/25/23 12/27/23 Tamsulosin HCl [Flomax] 0.4 mg PO DAILY 12/25/23 12/27/23 traZODone [Desyrel] 50 mg PO DAILY 12/25/23 12/27/23 - Allergies Allergies/Adverse Reactions: Allergies Allergy/AdvReac Type Severity Reaction Status Date / Time No Known Drug Allergies Allergy Verified 12/31/23 18:53 Review of Systems - Constitutional Constitutional: reports: Fatigue, Poor appetite. denies: Fever, Chills, Malaise - Eyes Eyes: denies: Blurred vision - Ears, Nose & Throat Ears, Nose & Throat: denies: Hearing loss, Tinnitus, Vertigo - Cardiovascular Cariovascular: denies: Irregular heart rate, Palpitations - Respiratory Respiratory: reports: Sputum production. denies: Cough - Gastrointestinal Gastrointestinal: reports: Abdominal pain, Abdominal distention. denies: Black stools, Bloody stools, Coffee grounds emesis - Genitourinary Genitourinary: denies: Dysuria - Integumentary Integumentary: denies: Rash - Neurological Neurological: denies: General weakness, Focal weakness - Endocrine Endocrine: denies: Polyuria - Hematologic/Lymphatic Hematologic/Lymphatic: denies: Anemia - All Other Systems All Other Systems: reports: Reviewed and negative Prior Level of Functionality: independent Exam - Vital Signs Vital Signs: Vital Signs x48h Temp Pulse Resp BP Pulse Ox 12/31/23 18:19 36.1 C L 65 20 131/78 H 96 - Physical Exam General Appearance: positive: No acute distress, Alert Eyes Bilateral: positive: Normal inspection, No scleral icterus ENT: positive: ENT inspection nml Neck: positive: Nml inspection Respiratory: positive: Chest non-tender, No respiratory distress, Breath sounds nml Cardiovascular: positive: Regular rate & rhythm Abdomen: positive: Other (appropriately tender, mildly distended. occasional bowel sounds. laparoscopic incisions are with appropriate inflammation, no dehiscence) Back: positive: Nml inspection Skin: positive: Color nml Extremities: positive: Non-tender Neurologic/Psychiatric: positive: Oriented x3 Conclusion/Plan - Problem List (1) Ileus, postoperative Conclusion/Plan: Postoperative day 3 from laparoscopic lysis of adhesions. Patient does not have severe abdominal pain he does have nausea and vomiting. He is passing occasional gas. He does not have a leukocytosis. He is not anemic. He will be followed by surgery who does not recommend imaging at this time. We will give him supportive care with IV fluids. We will treat him with antinausea medications. I would recommend placing an NG tube should he vomit again. He may have ice chips for comfort. (2) Hyponatremia Conclusion/Plan: Sodium of 130. He had mild hyponatremia during his last admission. At this time I will repeat BMP in the a.m. and consider free water restriction should the sodium drop lower. (3) HLD (hyperlipidemia) Conclusion/Plan: will resume home statin when he is able to take PO (4) BPH (benign prostatic hyperplasia) Conclusion/Plan: hold home flomax until able to take PO - Lab Results Fish Bones: 01/01/24 05:00 01/01/24 05:00
[2023-12-31] MEDS: LACTATED RINGERS 1,000 ML IV SCH (19:45)
[2023-12-31] MEDS: ONDANSETRON 4 MG/2 ML VIAL IVP PRN (21:42)
[2023-12-31] MEDS: ACETAMINOPHEN 1,000 MG/100 ML 1,000 MG/100 ML BAG IV PRN (21:48)
[2023-12-31] MEDS: HEPARIN 5,000 UNIT/ML VIAL SUBQ SCH (21:50)
[2023-12-31] MEDS ORDERED: HYDROmorphone 0.5 MG/0.5 ML SYRINGE IVP PRN (22:09)
[2023-12-31] MEDS: HYDROmorphone 0.5 MG/0.5 ML SYRINGE IVP PRN (22:20)
[2024-01-01] MEDS: SODIUM CHLORIDE FLUSH 0.9% 10 ML SYRINGE IVP SCH (01:47)
[2024-01-01 05:32] LABS: BASOPHILS % (AUTO) 0.4 %; EOSINOPHILS # (AUTO) 0.1 10^3/uL (0.0-0.7); EOSINOPHILS % (AUTO) 1.8 %; HCT - HEMATOCRIT 41.8 % (42.0-52.0); HGB - HEMOGLOBIN 14.2 g/dL (14.0-18.0); LYMPHOCYTES % (AUTO) 13.5 %; MEAN CORPUSCULAR HEMOGLOBIN 31.9 pg (27.0-31.0); MEAN CORPUSCULAR VOLUME 93.9 fL (80.0-94.0); MEAN PLATELET VOLUME 9.9 fL (7.4-11.4); MONOCYTES % (AUTO) 12.8 %; NEUTROPHILS # (AUTO) 5.4 10^3/uL (1.5-6.6); NEUTROPHILS % (AUTO) 71.1 %; PLT - PLATELET COUNT 314 10^3/uL (130-450); RED BLOOD COUNT 4.45 10^6/uL (4.70-6.10); RED CELL DISTRIBUTION WIDTH 11.9 % (12.0-15.0); WHITE BLOOD COUNT 7.6 x10^3/uL (4.8-10.8)
[2024-01-01 05:55] LABS: CALCIUM 8.1 mg/dL (8.5-10.3); CREATININE 0.7 mg/dL (0.6-1.3); POTASSIUM 3.4 mmol/L (3.5-4.5)
--- NOTE | 2024-01-01 09:12 | PROVIDER PROGRESS NOTE ---
Subjective - Prog Note Date Prog Note Date: 01/01/24 Prog Note Time: 08:36 - Subjective Pt reports feeling: Improved Subjective: has been able to urinate independently. had a BM overnight. he is passing gas. feels better, but concerned that he felt this way yesterday AM, then became much worse which precipitated his readmission Current Medications - Current Medications Current Medications: Medications Acetaminophen (Acetaminophen) 1,000 mg in 100 mls @ 400 mls/hr IV Q6HR PRN PRN Reason: Moderate Pain (Level 4-6) Last Admin: 12/31/23 22:14 Dose: Infused Heparin Sodium (Porcine) (Heparin 5,000 Unit/Ml Vial) 5,000 unit SUBQ BID [facility] Last Admin: 12/31/23 21:50 Dose: Not Given Hydromorphone HCl (Hydromorphone 0.5 Mg/0.5 Ml Syringe) 0.2 mg IVP Q4H PRN PRN Reason: PAIN 5-7 Last Admin: 12/31/23 22:20 Dose: 0.2 mg Lactated Ringer's (Lr) 1,000 mls @ 100 mls/hr IV .Q10H [facility] Last Admin: 01/01/24 04:59 Dose: 100 mls/hr Ondansetron HCl (Ondansetron 4 Mg/2 Ml Vial) 4 mg IVP Q6HR PRN PRN Reason: Nausea / Vomiting Last Admin: 12/31/23 21:42 Dose: 4 mg Objective - Vital Signs/Intake & Output Vital Signs: Vital Signs x48h Temp Pulse Resp BP Pulse Ox 01/01/24 07:43 37.0 C 65 18 101/68 93 01/01/24 05:00 36.7 C 107 H 18 108/73 93 Intake & Output: Intake & Output 12/29/23 12/30/23 12/31/23 01/01/24 23:59 23:59 23:59 23:59 Intake Total 1100 923.333 Balance 1100 923.333 - Objective General Appearance: positive: No acute distress, Alert Eyes Bilateral: positive: Normal inspection ENT: positive: ENT inspection nml Neck: positive: Nml inspection Respiratory: positive: No respiratory distress, Breath sounds nml Cardiovascular: positive: Regular rate & rhythm Abdomen: positive: Nml bowel sounds, No distention, Other (mildly tender. incisions healing well. yulia incisional ecchymosis) Skin: positive: Color nml Neurologic/Psychiatric: positive: Oriented x3 - Lab Results Fish Bones: 01/01/24 05:00 01/01/24 05:00 Other Labs: Lab Results x24hrs 01/01/24 01/01/24 12/31/23 Range/Units 05:00 05:00 18:09 WBC 7.6 (4.8-10.8) x10^3/uL RBC 4.45 L (4.70-6.10) 10^6/uL Hgb 14.2 (14.0-18.0) g/dL Hct 41.8 L (42.0-52.0) % MCV 93.9 (80.0-94.0) fL MCH 31.9 H (27.0-31.0) pg MCHC 34.0 (32.0-36.0) g/dL RDW 11.9 L (12.0-15.0) % Plt Count 314 (130-450) 10^3/uL MPV 9.9 (7.4-11.4) fL Neut # (Auto) 5.4 (1.5-6.6) 10^3/uL Lymph # (Auto) 1.0 L (1.5-3.5) 10^3/uL [place] # (Auto) 1.0 (0.0-1.0) 10^3/uL Eos # (Auto) 0.1 (0.0-0.7) 10^3/uL Baso # (Auto) 0.0 (0.0-0.1) 10^3/uL Absolute Nucleated RBC 0.00 x10^3/uL Nucleated RBC % 0.0 /100WBC Sodium 131 L 130 L (135-145) mmol/L Potassium 3.4 L 3.9 (3.5-4.5) mmol/L Chloride 94 L 89 L (101-111) mmol/L Carbon Dioxide 29 31 (21-32) mmol/L Anion Gap 8.0 10.0 (6-13) BUN 11 10 (6-20) mg/dL Creatinine 0.7 1.0 (0.6-1.3) mg/dL Estimated GFR (MDRD) 111 74 L (>89) Glucose 113 H 147 H (74-104) mg/dL Calcium 8.1 L 9.4 (8.5-10.3) mg/dL Total Bilirubin 0.7 (0.2-1.0) mg/dL AST 18 (10-42) IU/L ALT 12 (10-60) IU/L Alkaline Phosphatase 50 (42-121) IU/L Total Protein 6.9 (6.4-8.9) g/dL Albumin 3.8 (3.2-5.5) g/dL Globulin 3.1 (2.1-4.2) g/dL Albumin/Globulin Ratio 1.2 (1.0-2.2) 12/31/23 Range/Units 18:09 WBC 7.9 (4.8-10.8) x10^3/uL RBC 5.07 (4.70-6.10) 10^6/uL Hgb 15.9 (14.0-18.0) g/dL Hct 48.5 (42.0-52.0) % MCV 95.7 H (80.0-94.0) fL MCH 31.4 H (27.0-31.0) pg MCHC 32.8 (32.0-36.0) g/dL RDW 11.9 L (12.0-15.0) % Plt Count 348 (130-450) 10^3/uL MPV 9.7 (7.4-11.4) fL Neut # (Auto) 5.9 (1.5-6.6) 10^3/uL Lymph # (Auto) 0.8 L (1.5-3.5) 10^3/uL [place] # (Auto) 1.0 (0.0-1.0) 10^3/uL Eos # (Auto) 0.1 (0.0-0.7) 10^3/uL Baso # (Auto) 0.0 (0.0-0.1) 10^3/uL Absolute Nucleated RBC 0.00 x10^3/uL Nucleated RBC % 0.0 /100WBC Sodium (135-145) mmol/L Potassium (3.5-4.5) mmol/L Chloride (101-111) mmol/L Carbon Dioxide (21-32) mmol/L Anion Gap (6-13) BUN (6-20) mg/dL Creatinine (0.6-1.3) mg/dL Estimated GFR (MDRD) (>89) Glucose (74-104) mg/dL Calcium (8.5-10.3) mg/dL Total Bilirubin (0.2-1.0) mg/dL AST (10-42) IU/L ALT (10-60) IU/L Alkaline Phosphatase (42-121) IU/L Total Protein (6.4-8.9) g/dL Albumin (3.2-5.5) g/dL Globulin (2.1-4.2) g/dL Albumin/Globulin Ratio (1.0-2.2) ABX Reporting Has patient been on IV antibiotics over the past 48 hours?: No Assessment/Plan - Problem List (1) Ileus, postoperative Impression: Postoperative day 4 from laparoscopic lysis of adhesions. He has improved overnight with less abdominal distension, has passed gas and had a BM. He did not have any vomiting overnight, and thus did not have NG tube placed. CBC remains unremarkable. He will seen by surgery prior to dc. Discussed with Dr Rodriguez this AM. He tolerated about 50% of a regular diet lunch and then several hours after that vomited 400 mL. This afternoon he has hypoactive bowel tones and distention of his abdomen. I obtained a 1 view abdominal x-ray he has distended loops of small bowel with stacked coin appearance. (2) Hyponatremia Conclusion/Plan: Sodium of 130 on admit. He had mild hyponatremia during his last admission. Na is 131 this AM. This is mild hyponatremia. Would recommend PCP followup. (3) HLD (hyperlipidemia) Conclusion/Plan: will resume home statin on discharge. (4) BPH (benign prostatic hyperplasia) Conclusion/Plan: I restarted his flomax this AM.
--- NOTE | 2024-01-01 11:29 | PHARMACY PROGRESS NOTE ---
- Best Possible Medication History Admit Date and Time: 12/31/23 1834 Processed by: Pharmacy Medication History completed: Yes Patient Interview: Completed Secondary Source(s): Insurance records (PT INTERVIEW COMPLETED AND SURESCRIPTS RECORDS VERIFIED, PT IS RE-ADMIT AND MED REC WAS RECENTLY COMPLETED WELL) As the person ultimately responsible for medication therapy, providers are able to order a medication from an existing home medication list in [facility] via the "Reconcile Routine" prior to Confirmation of that medication by client support analyst. Such practice is discouraged except when the physician, in their clinical judgment, deems that a medical need exists for a medication without regard to previous use.
--- NOTE | 2024-01-01 19:07 | CONSULTATION NOTE ---
Referring Provider Name of Referring Provider:: Meghan Salcido PA-C Consult Date: 01/01/24 Chief Complaint - Chief Complaint Chief Complaint: Abdominal pain and nausea History of Present Illness - Admitted From Admitted From:: ED - History Obtained From Records Reviewed: Yes History obtained from: Patient and chart Exam Limitations: None. - History of Present Illness HPI Comment/Other: This exceedingly pleasant 73-year-old male is evaluated in room 2203 at [facility] Med[facility] unit for postoperative abdominal pain nausea and some vomiting. I initially saw him in consultation on December 27, 2023 with a small bowel obstruction. I attempted conservative measures for approximately 24 hours but when his small bowel obstruction did not resolve I took him to the operating room on December 28, 2019 for and performed a laparoscopic adhesiolysis. This seemed to resolve his symptoms and he was discharged home on December 30, 2023 with the instructions to take a general diet and no restrictions on activity. He maintained at home for approximately 24 hours at which point he was noting increasing abdominal distention accompanied by nausea and vomiting. His p.o. intake was poor. He presented to the emergency department after speaking with me for pain management and IV hydration. He was brought into the hospital on the hospitalist service of which I am appreciative. Today he tells me that he does not very well for the vast majority of the day but every day at approximately 3:00 in the afternoon he has nausea and vomiting. He has been walking up in the halls once today and I explained to him that this should at least be 3-4 times. He states that when he did walk he did 4 laps. He is motivated to walk some more. He continues to have small bowel movements and passed some gas. History - Past Medical History Cardiovascular: reports: High cholesterol Respiratory: reports: None Neuro: reports: None Endocrine/Autoimmune: reports: None GI: reports: GERD : reports: Benign prostate hypertrophy HEENT: reports: None Psych: reports: None, Other Musculoskeletal: reports: None Derm: reports: None MRSA Hx?: No - Past Surgical History General: reports: Bowel surgery Ortho: reports: Knee replacement, Other (ankle fusion) - Family & Social History Family History: Mother: Alzheimer's Disease (age 92), Father: (83- unknown cause) Living arrangement: At home Living Situation: With spouse/s.o. (lives 5 months of the year in [place]- other part of the year [place]) - Substance History Use: Uses substance without health or social issues: Alcohol (6-8 beers/day. none since became sick with bowel obstruction) - POLST Patient has POLST: No POLST Status: DNR (discussed briefly with patient.) Meds/Allgy - Home Medications Home Medications: Ambulatory Orders Medication Instructions Recorded Confirmed Atorvastatin [Lipitor] 10 mg PO DAILY 12/25/23 01/01/24 Dicyclomine [Bentyl] 20 mg PO QID PRN #30 cap 12/25/23 01/01/24 Ondansetron Odt [Zofran] 4 mg TL Q6H PRN #10 tablet 12/25/23 01/01/24 Tamsulosin HCl [Flomax] 0.4 mg PO DAILY 12/25/23 01/01/24 traZODone [Desyrel] 50 mg PO DAILY 12/25/23 01/01/24 - Allergies Allergies/Adverse Reactions: Allergies Allergy/AdvReac Type Severity Reaction Status Date / Time No Known Drug Allergies Allergy Verified 12/31/23 18:53 Review of Systems - Constitutional Constitutional: denies: Fatigue, Fever, Chills - Eyes Eyes: denies: Pain - Ears, Nose & Throat Ears, Nose & Throat: denies: Ear pain - Cardiovascular Cariovascular: denies: Irregular heart rate, Palpitations, Chest pain - Respiratory Respiratory: denies: Cough, Sputum production - Gastrointestinal Gastrointestinal: reports: Abdominal distention (Slight), Nausea. denies: Abdominal pain, Black stools, Bloody stools - Genitourinary Genitourinary: denies: Dysuria - Musculoskeletal Musculoskeletal: denies: Back pain, Muscle aches - Neurological Neurological: denies: General weakness, Focal weakness - Psychiatric Psychiatric: denies: Depression, Anxiety Exam - Vital Signs Reviewed Vital Signs: Yes Vital Signs: Vital Signs x48h Temp Pulse Resp BP Pulse Ox 01/01/24 15:35 36.7 C 111 H 16 118/85 H 92 01/01/24 13:00 36.7 C 105 H 18 113/83 H 96 - Physical Exam General Appearance: positive: No acute distress Eyes Bilateral: positive: No lid inflammation, Conjunctivae nml, No scleral icterus ENT: positive: No signs of dehydration Neck: positive: Trachea midline Respiratory: positive: Chest non-tender, No respiratory distress, Breath sounds nml Cardiovascular: positive: Regular rate & rhythm, No murmur, No gallop Abdomen: positive: Non-tender, No organomegaly, Nml bowel sounds, Other (Some very slight distention with normal bowel sounds.). negative: Tenderness, Guarding, Rebound Skin: positive: Color nml, No rash, Warm, Dry Extremities: positive: Non-tender, Nml appearance, No pedal edema Neurologic/Psychiatric: positive: Oriented x3, Motor nml, Sensation nml, Mood/affect nml Conclusion and Plan - Lab Results Laboratory Results 01/01/24 05:00: Sodium 131 L, Potassium 3.4 L, Chloride 94 L, Carbon Dioxide 29, Anion Gap 8.0, BUN 11, Creatinine 0.7, Estimated GFR (MDRD) 111, Glucose 113 H, Calcium 8.1 L 01/01/24 05:00: WBC 7.6, RBC 4.45 L, Hgb 14.2, Hct 41.8 L, MCV 93.9, MCH 31.9 H, MCHC 34.0, RDW 11.9 L, Plt Count 314, MPV 9.9, Neut # (Auto) 5.4, Lymph # (Auto) 1.0 L, [place] # (Auto) 1.0, Eos # (Auto) 0.1, Baso # (Auto) 0.0, Absolute Nucleated RBC 0.00, Nucleated RBC % 0.0 12/31/23 18:09: Sodium 130 L, Potassium 3.9, Chloride 89 L, Carbon Dioxide 31, Anion Gap 10.0, BUN 10, Creatinine 1.0, Estimated GFR (MDRD) 74 L, Glucose 147 H, Calcium 9.4, Total Bilirubin 0.7, AST 18, ALT 12, Alkaline Phosphatase 50, Total Protein 6.9, Albumin 3.8, Globulin 3.1, Albumin/Globulin Ratio 1.2 12/31/23 18:09: WBC 7.9, RBC 5.07, Hgb 15.9, Hct 48.5, MCV 95.7 H, MCH 31.4 H, MCHC 32.8, RDW 11.9 L, Plt Count 348, MPV 9.7, Neut # (Auto) 5.9, Lymph # (Auto) 0.8 L, [place] # (Auto) 1.0, Eos # (Auto) 0.1, Baso # (Auto) 0.0, Absolute Nucleated RBC 0.00, Nucleated RBC % 0.0 - Diagnosis Diagnosis: Almost certainly postoperative ileus. - Plan Plan: I am confident that this will resolve with time. He has no indications of infection or pending infection. If he throws up more than 3 times I would recommend placement of a nasogastric tube but I do not think this will occur. Additionally his laboratory values support the fact that he does not have an active infection. Surgery at this point in time is not indicated. I will continue to follow in his care and I expect that with the passage of some time as well as IV hydration this will resolve completely.
[2024-01-01] MEDS: LACTATED RINGERS 1,000 ML IV SCH (19:44)
--- NOTE | 2024-01-01 20:59 | XRAY Report ---
PROCEDURE: Abdomen 1 V INDICATIONS: vomiting TECHNIQUE: One view of the abdomen acquired. COMPARISON: CT 12/26/2023 FINDINGS: Surgical changes and devices: None. Bowel: Several air-filled dilated prominent small bowel loops are centralized in the abdomen, similar compared to the CT scan performed recently. There is gas in the ascending colon which is relatively decompressed. No pneumoperitoneum. Soft tissues: No suspicious abdominal calcifications. Visualized solid organ contours appear normal in size. Bones: No suspicious bony lesions. IMPRESSION: Findings suggestive of recurrent or persistent small bowel obstruction/ileus. Reviewed by: Sharita Dow MD on 01/01/2024 8:58 PM PDT Approved by: Sharita Dow MD on 01/01/2024 8:58 PM PDT Station ID: [id number]
[2024-01-02 05:32] LABS: BASOPHILS # (AUTO) 0.1 10^3/uL (0.0-0.1); BASOPHILS % (AUTO) 0.6 %; EOSINOPHILS # (AUTO) 0.3 10^3/uL (0.0-0.7); EOSINOPHILS % (AUTO) 2.8 %; HCT - HEMATOCRIT 39.8 % (42.0-52.0); HGB - HEMOGLOBIN 13.6 g/dL (14.0-18.0); LYMPHOCYTES # (AUTO) 1.1 10^3/uL (1.5-3.5); LYMPHOCYTES % (AUTO) 12.7 %; MEAN CORPUSCULAR HEMOGLOBIN 32.2 pg (27.0-31.0); MEAN CORPUSCULAR HGB CONC 34.2 g/dL (32.0-36.0); MEAN CORPUSCULAR VOLUME 94.3 fL (80.0-94.0); MEAN PLATELET VOLUME 9.3 fL (7.4-11.4); MONOCYTES # (AUTO) 1.2 10^3/uL (0.0-1.0); MONOCYTES % (AUTO) 12.8 %; NEUTROPHILS # (AUTO) 6.4 10^3/uL (1.5-6.6); NEUTROPHILS % (AUTO) 70.4 %; PLT - PLATELET COUNT 320 10^3/uL (130-450); RED BLOOD COUNT 4.22 10^6/uL (4.70-6.10); RED CELL DISTRIBUTION WIDTH 11.9 % (12.0-15.0)
[2024-01-02 05:54] LABS: CALCIUM 7.9 mg/dL (8.5-10.3); CREATININE 0.8 mg/dL (0.6-1.3); POTASSIUM 3.3 mmol/L (3.5-4.5)
[2024-01-02] MEDS ORDERED: METOCLOPRAMIDE 10 MG/2 ML VIAL IVP PRN (07:15)
[2024-01-02] MEDS: TAMSULOSIN 0.4 MG CAPSULE PO SCH (08:13)
[2024-01-02] MEDS: POTASSIUM CHLOR 10 MEQ/100 ML 10 MEQ/100 ML BAG IV SCH (08:13)
[2024-01-02] MEDS: ceFAZolin 1 GM in SODIUM CHLORIDE 0.9% MINIBAG 100 ML IV SCH (10:20)
--- NOTE | 2024-01-02 11:07 | PROVIDER PROGRESS NOTE ---
Subjective - Prog Note Date Prog Note Date: 01/02/24 Prog Note Time: 11:07 - Subjective Subjective: This AM, feels fine, and hopeful for a better day. he is not hungry. Did eat breakfast, and lunch today. This afternoon, about 2pm, has nausea and does not feel well. Some abdominal pain this afternoon. he has been walking the halls all day. Ran a fever overnight, has been getting tylenol since that time. Current Medications - Current Medications Current Medications: Medications Acetaminophen (Acetaminophen) 1,000 mg in 100 mls @ 400 mls/hr IV Q6HR PRN PRN Reason: Moderate Pain (Level 4-6) Last Admin: 01/02/24 06:00 Dose: Infused Cefazolin Sodium 1 gm/ Sodium (Chloride) 100 mls @ 200 mls/hr IV Q8H [facility] Stop: 01/05/24 09:59 Last Admin: 01/02/24 10:53 Dose: Infused Heparin Sodium (Porcine) (Heparin 5,000 Unit/Ml Vial) 5,000 unit SUBQ BID [facility] Last Admin: 01/02/24 08:13 Dose: Not Given Hydromorphone HCl (Hydromorphone 0.5 Mg/0.5 Ml Syringe) 0.2 mg IVP Q4H PRN PRN Reason: PAIN 5-7 Last Admin: 12/31/23 22:20 Dose: 0.2 mg Metoclopramide HCl (Metoclopramide 10 Mg/2 Ml Vial) 5 mg IVP Q6HR [facility] Last Admin: 01/02/24 11:46 Dose: 5 mg Ondansetron HCl (Ondansetron 4 Mg/2 Ml Vial) 4 mg IVP Q6HR PRN PRN Reason: Nausea / Vomiting Last Admin: 01/02/24 13:25 Dose: 4 mg Potassium Chloride/Dextrose/Sod Cl (D5.45ns W/20 Meq Kcl) 1,000 mls @ 100 mls/hr IV .Q10H [facility] Last Admin: 01/02/24 11:44 Dose: 100 mls/hr Tamsulosin HCl (Tamsulosin 0.4 Mg Capsule) 0.4 mg PO DAILY [facility] Last Admin: 01/02/24 08:13 Dose: 0.4 mg Discontinued Medications Sodium Chloride (Normal Saline 0.9%) 1,000 mls @ 0 mls/hr IV .Q0M [facility] Stop: 12/31/23 17:49 Last Admin: 12/31/23 20:56 Dose: Infused Objective - Vital Signs/Intake & Output Vital Signs: Vital Signs x48h Temp Pulse Resp BP Pulse Ox 01/02/24 08:11 36.5 C 114 H 18 110/81 H 95 01/02/24 06:43 37.0 C 01/02/24 05:00 38.1 C H 114 H 18 122/83 H 93 Intake & Output: Intake & Output 12/30/23 12/31/23 01/01/24 01/02/24 23:59 23:59 23:59 23:59 Intake Total 1100 2321.666 905 Output Total 300 Balance 1100 2021.666 905 - Objective General Appearance: positive: No acute distress, Alert Eyes Bilateral: positive: Normal inspection ENT: positive: ENT inspection nml Neck: positive: Nml inspection Respiratory: positive: No respiratory distress Cardiovascular: positive: Regular rate & rhythm Abdomen: positive: Abnml bowel sounds (appropriate tenderness, there is mild distension. incisions without discharge. cellulitis of the abdominal wall with marked erythema- it is within these lines.) Back: positive: Nml inspection Skin: positive: Color nml, Other (see abdominal exam) Extremities: positive: Non-tender, No pedal edema Neurologic/Psychiatric: positive: Oriented x3 - Lab Results Fish Bones: 01/02/24 05:15 01/02/24 05:15 Other Labs: Lab Results x24hrs 01/02/24 01/02/24 Range/Units 05:15 05:15 WBC 9.0 (4.8-10.8) x10^3/uL RBC 4.22 L (4.70-6.10) 10^6/uL Hgb 13.6 L (14.0-18.0) g/dL Hct 39.8 L (42.0-52.0) % MCV 94.3 H (80.0-94.0) fL MCH 32.2 H (27.0-31.0) pg MCHC 34.2 (32.0-36.0) g/dL RDW 11.9 L (12.0-15.0) % Plt Count 320 (130-450) 10^3/uL MPV 9.3 (7.4-11.4) fL Neut # (Auto) 6.4 (1.5-6.6) 10^3/uL Lymph # (Auto) 1.1 L (1.5-3.5) 10^3/uL [place] # (Auto) 1.2 H (0.0-1.0) 10^3/uL Eos # (Auto) 0.3 (0.0-0.7) 10^3/uL Baso # (Auto) 0.1 (0.0-0.1) 10^3/uL Absolute Nucleated RBC 0.00 x10^3/uL Nucleated RBC % 0.0 /100WBC Sodium 130 L (135-145) mmol/L Potassium 3.3 L (3.5-4.5) mmol/L Chloride 96 L (101-111) mmol/L Carbon Dioxide 27 (21-32) mmol/L Anion Gap 7.0 (6-13) BUN 8 (6-20) mg/dL Creatinine 0.8 (0.6-1.3) mg/dL Estimated GFR (MDRD) 95 (>89) Glucose 99 (74-104) mg/dL Calcium 7.9 L (8.5-10.3) mg/dL ABX Reporting Has patient been on IV antibiotics over the past 48 hours?: Yes Assessment/Plan - Problem List (1) Ileus, postoperative Impression: 1) Ileus, postoperative Impression: Postoperative day 5 from laparoscopic lysis of adhesions. Vomited late yesterday afternoon. CBC remains unremarkable. Discussed with Dr Rodriguez this afternoon. Will continue with conservative care. Ate some of his breakfast and lunch (2) abdominal wall cellulitis This is new. Had some ecchymosis yesterday with mild erythema. overnight developed a fever, 38.1C. WBC is normal. hemodynamically normal. I do not th ink this is sepsis. I have ordered Ancef and will follow clinically . I have ordered repeat CBC for the AM. (3). Hypokalemia. K is 3.3 today. I have been replacing with IV Kcl and today changed his fluids to D5 1/2 NS. I have ordered repeat BMP for the AM. (4) Hyponatremia Conclusion/Plan: Sodium of 130 on admit. He had mild hyponatremia during his last admission. Na is 130 this AM. This is mild hyponatremia. Would recommend PCP followup. I have ordered repeat BMP for the AM. (5) HLD (hyperlipidemia) Conclusion/Plan: will resume home statin on discharge. (6) BPH (benign prostatic hyperplasia) Conclusion/Plan: I have restarted home flomax. he is urinating without difficulty
[2024-01-02] MEDS: D5.45NS W/20 MEQ KCL 1,000 ML IV SCH (11:44)
[2024-01-02] MEDS: METOCLOPRAMIDE 10 MG/2 ML VIAL IVP SCH (11:46)
--- NOTE | 2024-01-02 15:30 | ADVANCE CARE PLANNING NOTE ---
Advance Care Planning - Planning Encounter Date: 01/02/24 Time: 14:00 Purpose: determine the direction of this patient's healthcare globally Parties in Attendance: Meghan Salcido PA-C, Nilsa via telephone, patient. Decisional Capacity of the Patient: Alert and oriented with insight into his health situation - Encounter Subjective/Patient's Story: Leukocytosis Lamonte has a very good quality of life. He lives with his in the [facility] permanently and comes up to [facility] every summer. [place] He is active, enjoys playing golf. They have 3 children all of whom are healthy. 2 of his children live in [facility] and one of his children lives in the [facility]. Objective/Medical Story: Lamonte has been having some gastrointestinal disturbance for the last 3 to 4 months. He had a colonoscopy several months ago which was negative. He developed a bowel obstruction without any surgical history. He was taken to the operating room for laparoscopic exploration and a single band of scar tissue was released. He has had a persistent postoperative ileus. But otherwise he is quite healthy. He has a history of hyperlipidemia and benign prostatic hypertrophy. Goals of Care: Lamonte does not want to live in a disabled state. He would not want extreme annette ures taken to keep him alive. Plan: Full code with full care. Lamonte and his have had some advance care planning discussions amongst themselves. They do have living will type documents which state that no extreme measures will be taken. We reviewed that advance care planning is a discussion that should be ongoing throughout the lifespan especially as aging starts to accelerate. POLST was completed today with Nilsa as Lamonte's surrogate decision maker. Full code. Full care. Code Status: Attempt Resuscitation Time spent on advance care plannin min
--- NOTE | 2024-01-02 15:56 | PROVIDER PROGRESS NOTE ---
Subjective - General Admit Date: 01/02/24 Procedure Date: 12/28/23 Post Op Days: 5 Procedure Performed: Laparoscopic adhesiolysis - Review of Systems Wound/Incisions: positive: Healing well, Erythema (Minimal.) General: positive: Malaise HEENT: positive: No symptoms Pulmonary: positive: No symptoms Cardiovascular: positive: No symptoms Gastrointestinal: positive: No symptoms, Nausea Musculoskeletal: positive: No symptoms Skin: positive: No symptoms Psychiatric: positive: No symptoms All Other Systems: positive: Reviewed and negative Objective - Patient Data Reviewed Vital Signs: Yes Vital Signs: Vital Signs x48h Temp Pulse Resp BP Pulse Ox 01/02/24 13:00 36.8 C 113 H 18 124/83 H 94 01/02/24 08:11 36.5 C 114 H 18 110/81 H 95 Weight: Weight 12/31/23 01/01/24 01/02/24 23:59 23:59 23:59 Weight (kg) 88 kg Intake & Output: Intake and Output Totals x24h 12/31/23 01/01/24 01/02/24 23:59 23:59 23:59 Intake Total 1100 2321.666 2425 Output Total 300 Balance 1100 2021.666 2425 - Lab Results Lab Results: 01/02/24 05:15 01/02/24 05:15 Other Lab Results: Lab Results x24hrs 01/02/24 01/02/24 Range/Units 05:15 05:15 WBC 9.0 (4.8-10.8) x10^3/uL RBC 4.22 L (4.70-6.10) 10^6/uL Hgb 13.6 L (14.0-18.0) g/dL Hct 39.8 L (42.0-52.0) % MCV 94.3 H (80.0-94.0) fL MCH 32.2 H (27.0-31.0) pg MCHC 34.2 (32.0-36.0) g/dL RDW 11.9 L (12.0-15.0) % Plt Count 320 (130-450) 10^3/uL MPV 9.3 (7.4-11.4) fL Neut # (Auto) 6.4 (1.5-6.6) 10^3/uL Lymph # (Auto) 1.1 L (1.5-3.5) 10^3/uL [place] # (Auto) 1.2 H (0.0-1.0) 10^3/uL Eos # (Auto) 0.3 (0.0-0.7) 10^3/uL Baso # (Auto) 0.1 (0.0-0.1) 10^3/uL Absolute Nucleated RBC 0.00 x10^3/uL Nucleated RBC % 0.0 /100WBC Sodium 130 L (135-145) mmol/L Potassium 3.3 L (3.5-4.5) mmol/L Chloride 96 L (101-111) mmol/L Carbon Dioxide 27 (21-32) mmol/L Anion Gap 7.0 (6-13) BUN 8 (6-20) mg/dL Creatinine 0.8 (0.6-1.3) mg/dL Estimated GFR (MDRD) 95 (>89) Glucose 99 (74-104) mg/dL Calcium 7.9 L (8.5-10.3) mg/dL - Current Medications Current Medications: Current Medications Generic Name Dose Route Start Last Admin Trade Name Freq PRN Reason Stop Dose Admin Heparin Sodium (Porcine) 5,000 unit 12/31/23 21:00 01/02/24 08:13 Heparin 5,000 Unit/Ml Vial SUBQ Not Given BID SOHAM Hydromorphone HCl 0.2 mg 12/31/23 22:08 12/31/23 22:20 Hydromorphone 0.5 Mg/0.5 Ml Syringe IVP 0.2 mg Q4H PRN Administration PAIN 5-7 Acetaminophen 1,000 mg in 100 mls @ 400 mls/hr 12/31/23 18:37 01/02/24 06:00 Acetaminophen IV Infused Q6HR PRN Infusion Moderate Pain (Level 4-6) Cefazolin Sodium 1 gm/ Sodium 100 mls @ 200 mls/hr 01/02/24 10:00 01/02/24 10:53 Chloride IV 01/05/24 09:59 Infused Q8H SOHAM Infusion Potassium Chloride/Dextrose/Sod Cl 1,000 mls @ 100 mls/hr 01/02/24 12:00 01/02/24 11:44 D5.45ns W/20 Meq Kcl IV 100 mls/hr .Q10H SOHAM Administration Metoclopramide HCl 5 mg 01/02/24 12:00 01/02/24 11:46 Metoclopramide 10 Mg/2 Ml Vial IVP 5 mg Q6HR SOHAM Administration Ondansetron HCl 4 mg 12/31/23 18:37 01/02/24 13:25 Ondansetron 4 Mg/2 Ml Vial IVP 4 mg Q6HR PRN Administration Nausea / Vomiting Sodium Chloride 10 ml 01/01/24 01:00 01/02/24 08:13 Sodium Chloride Flush 0.9% 10 Ml Syringe IVP 10 ml 0100,0900,1700 SOHAM Administration Tamsulosin HCl 0.4 mg 01/02/24 09:00 01/02/24 08:13 Tamsulosin 0.4 Mg Capsule PO 0.4 mg DAILY SOHAM Administration - Physical Exam Wound/Incisions: positive: Erythema (Minimal at umbilicus) General Appearance: positive: No acute distress Eyes Bilateral: positive: No lid inflammation, Conjunctivae nml, No scleral icterus ENT: positive: No signs of dehydration Neck: positive: Nml inspection, Thyroid nml Cardiovascular: positive: Regular rate & rhythm, No murmur, No gallop Abdomen: positive: Nml bowel sounds, Other (Slight distention). negative: Tenderness Skin: positive: Color nml, No rash, Warm, Dry Extremities: positive: Non-tender, Nml appearance Neurologic/Psychiatric: positive: Oriented x3, Motor nml, Sensation nml, Mood/affect nml ABX Reporting Has patient been on IV antibiotics over the past 48 hours?: Yes Impression/Plan - Problem List Problem List: Continue current course. Awaiting for ileus to resolve. Agree with current management.
[2024-01-03 05:34] LABS: BASOPHILS # (AUTO) 0.1 10^3/uL (0.0-0.1); BASOPHILS % (AUTO) 0.7 %; EOSINOPHILS # (AUTO) 0.3 10^3/uL (0.0-0.7); EOSINOPHILS % (AUTO) 3.8 %; HCT - HEMATOCRIT 36.9 % (42.0-52.0); HGB - HEMOGLOBIN 12.7 g/dL (14.0-18.0); LYMPHOCYTES # (AUTO) 1.1 10^3/uL (1.5-3.5); LYMPHOCYTES % (AUTO) 14.9 %; MEAN CORPUSCULAR HEMOGLOBIN 32.4 pg (27.0-31.0); MEAN CORPUSCULAR HGB CONC 34.4 g/dL (32.0-36.0); MEAN CORPUSCULAR VOLUME 94.1 fL (80.0-94.0); MEAN PLATELET VOLUME 9.3 fL (7.4-11.4); MONOCYTES % (AUTO) 12.8 %; NEUTROPHILS # (AUTO) 5.1 10^3/uL (1.5-6.6); NEUTROPHILS % (AUTO) 66.7 %; PLT - PLATELET COUNT 317 10^3/uL (130-450); RED BLOOD COUNT 3.92 10^6/uL (4.70-6.10); RED CELL DISTRIBUTION WIDTH 12.2 % (12.0-15.0); WHITE BLOOD COUNT 7.6 x10^3/uL (4.8-10.8)
[2024-01-03 05:45] LABS: CALCIUM 7.8 mg/dL (8.5-10.3); CREATININE 0.7 mg/dL (0.6-1.3); POTASSIUM 3.5 mmol/L (3.5-4.5)
[2024-01-03 07:40] VITALS: O2SAT 95
--- NOTE | 2024-01-03 13:05 | PROVIDER PROGRESS NOTE ---
Subjective - Prog Note Date Prog Note Date: 01/03/24 Prog Note Time: 13:01 - Subjective Subjective: Has been able to eat about 50% of his meals. Has been walking in the halls, passing gas and has had several small bowel movements. He is having minimal a bdominal pain. Current Medications - Current Medications Current Medications: Medications Ondansetron HCl (Ondansetron 4 Mg/2 Ml Vial) 4 mg IVP Q6HR PRN PRN Reason: Nausea / Vomiting Last Admin: 01/02/24 13:25 Dose: 4 mg Tamsulosin HCl (Tamsulosin 0.4 Mg Capsule) 0.4 mg PO DAILY [facility] Last Admin: 01/03/24 08:41 Dose: 0.4 mg Acetaminophen (Acetaminophen) 1,000 mg in 100 mls @ 400 mls/hr IV Q6HR PRN PRN Reason: Moderate Pain (Level 4-6) Last Admin: 01/02/24 06:00 Dose: Infused Cefazolin Sodium 1 gm/ Sodium (Chloride) 100 mls @ 200 mls/hr IV Q8H [facility] Stop: 01/05/24 09:59 Last Admin: 01/03/24 10:46 Dose: 200 mls/hr Heparin Sodium (Porcine) (Heparin 5,000 Unit/Ml Vial) 5,000 unit SUBQ BID [facility] Last Admin: 01/03/24 08:42 Dose: Not Given Metoclopramide HCl (Metoclopramide 10 Mg/2 Ml Vial) 5 mg IVP Q6HR [facility] Last Admin: 01/03/24 12:22 Dose: 5 mg Objective - Vital Signs/Intake & Output Reviewed Vital Signs: Yes Vital Signs: Vital Signs x48h Temp Pulse Resp BP Pulse Ox 01/03/24 12:14 37.1 C 115 H 18 130/94 H 95 01/03/24 07:36 37.1 C 116 H 18 125/85 H 95 Intake & Output: Intake & Output 12/31/23 01/01/24 01/02/24 01/03/24 23:59 23:59 23:59 23:59 Intake Total 1100 2321.666 4025 1340 Output Total 300 200 Balance 1100 2021.666 3825 1340 - Objective General Appearance: positive: No acute distress, Alert Eyes Bilateral: positive: Normal inspection ENT: positive: ENT inspection nml Neck: positive: Nml inspection Respiratory: positive: No respiratory distress, Breath sounds nml Cardiovascular: positive: Regular rate & rhythm Abdomen: positive: Non-tender, No distention, Other (cellulitis is extending outside the marked lines. there is no discharge from the surgical incisions. Bowel sounds are present.) Skin: positive: Color nml Extremities: positive: Non-tender, No pedal edema Neurologic/Psychiatric: positive: Oriented x3 - Lab Results Fish Bones: 01/03/24 04:59 01/03/24 04:59 Other Labs: Lab Results x24hrs 01/03/24 01/03/24 Range/Units 04:59 04:59 WBC 7.6 (4.8-10.8) x10^3/uL RBC 3.92 L (4.70-6.10) 10^6/uL Hgb 12.7 L (14.0-18.0) g/dL Hct 36.9 L (42.0-52.0) % MCV 94.1 H (80.0-94.0) fL MCH 32.4 H (27.0-31.0) pg MCHC 34.4 (32.0-36.0) g/dL RDW 12.2 (12.0-15.0) % Plt Count 317 (130-450) 10^3/uL MPV 9.3 (7.4-11.4) fL Neut # (Auto) 5.1 (1.5-6.6) 10^3/uL Lymph # (Auto) 1.1 L (1.5-3.5) 10^3/uL [place] # (Auto) 1.0 (0.0-1.0) 10^3/uL Eos # (Auto) 0.3 (0.0-0.7) 10^3/uL Baso # (Auto) 0.1 (0.0-0.1) 10^3/uL Absolute Nucleated RBC 0.00 x10^3/uL Nucleated RBC % 0.0 /100WBC Sodium 132 L (135-145) mmol/L Potassium 3.5 (3.5-4.5) mmol/L Chloride 101 (101-111) mmol/L Carbon Dioxide 26 (21-32) mmol/L Anion Gap 5.0 L (6-13) BUN 6 (6-20) mg/dL Creatinine 0.7 (0.6-1.3) mg/dL Estimated GFR (MDRD) 111 (>89) Glucose 114 H (74-104) mg/dL Calcium 7.8 L (8.5-10.3) mg/dL ABX Reporting Has patient been on IV antibiotics over the past 48 hours?: Yes Sepsis Event Note (H) - Sepsis Criteria Sepsis Criteria: Recorded Heart Rate greater than 90 bpm Assessment/Plan - Problem List (1) Ileus, postoperative Impression: Postoperative day 6 from laparoscopic lysis of adhesions. Has not vomited in >24 hours CBC remains unremarkable. He has been able to walk labs in the halls. he is having bowel movements and passing flatus. (2) abdominal wall cellulitis T max 38.1 This is isolated. The erythema is spreading outside the marked borders. He has been tachycardic today to 110's. (3). Hypokalemia. resolved. this was mild, as low as 3.3 (4) Hyponatremia Conclusion/Plan: Sodium of 130 on admit. He had mild hyponatremia during his last admission. Na is 132 this AM. This is mild hyponatremia. Would recommend PCP followup. he has established PCP in [place] via [place]. (5) HLD (hyperlipidemia) Conclusion/Plan: will resume home statin on discharge. (6) BPH (benign prostatic hyperplasia) Conclusion/Plan: I have restarted home flomax. he is urinating without difficulty
--- NOTE | 2024-01-03 14:29 | Discharge Plan ---
Discharge Plan Diet: Regular Activity Restrictions: No Restrictions No Smoking: If you smoke, Please STOP! Call for help. <Reece Nance - Last Filed: 01/03/24 15:29> Problem Reviewed?: Yes Shower Restrictions: No Driving Restrictions: No Weight Bearing: Full Weight No Smoking: If you smoke, Please STOP! Call for help. <Meghan Salcido - Last Filed: 01/03/24 15:43> Disposition: 01 Home, Self Care Condition: Good Prescriptions: Sulfamethoxazole/Trimethoprim [Bactrim 400-80 mg Tablet] 1 each PO BID 7 Days #14 tablet Sulfamethox/Trimeth 800/160 [Bactrim Ds] 1 tablet PO BID 7 Days #14 tablet oxyCODONE [Roxicodone] 5 mg PO Q6H PRN #10 tablet PRN Reason: Pain 5-7 oxyCODONE [Roxicodone] 5 mg PO Q4-6H #10 tablet Ondansetron Odt [Zofran Odt] 4 mg TL Q6H PRN #10 tablet PRN Reason: Nausea / Vomiting Instruction Topics: Ileus Health Concerns: You are 73-year-old male who presented 3 days after abdominal surgery with continued nausea and abdominal pressure/distention. You were found to have a postoperative ileus. You were treated with bowel rest and antibiotics. While you were here, we also managed some inflammation around the surgical site with antibiotics as well as some electrolyte disturbances. Plan of Treatment: I would encourage that she remain active, and eat food as tolerated. I have ordered antibiotics to continue after discharge as well as some pain medication and medicine to help with nausea Care Goals: the goal for you would be to return to normal bowel function. I would like you to maintain good nutrition in for the redness around your operative site to resolve Assessment: 73-year-old male who presented 12/31/2023 with a postoperative ileus and cellulitis around operative site. He was managed with bowel rest and antibiotics. he also had some electrolyte derangements which were managed Additional Instructions or Follow Up instructions: Dr Rodriguez (Dr Mathis) as directed Follow-up with: Del Rodriguez MD [Provider Admit Priv/Credential] -
[2024-01-03] MEDS: cefTRIAXone 1 GM in SODIUM CHLORIDE 0.9% MINIBAG 100 ML IV SCH (14:40)
--- NOTE | 2024-01-03 15:24 | DISCHARGE SUMMARY ---
"<Reece Nance - Last Filed: 01/03/24 15:29> Discharge Summary Admit Date: 12/31/23 Discharge Date: 01/03/24 Discharging Provider: Reece Nance NP Primary Care Provider: [facility] Condition at Discharge: Good Discharge Disposition: 01 Home, Self Care - DIAGNOSES Discharge Diagnoses with Status of Each Condition: Ileusresolved Abdominal wall cellulitisactive Hypokalemiaresolved Hyponatremiaimproving/active Hyperlipidemiachronic BPHchronic - HPI History of Present Illness: 73-year-old male postop day 3 from ex lap presented with worsening abdominal distention and nausea found to have a postoperative ileus. he was also noted to have abdominal wall cellulitis surrounding his operative site. He was admitted and treated with bowel rest. He was also noted to have hyponatremia and hypokalemia. This was managed with electrolyte supplementation - CONSULTS | PROCEDURES Consultations: General Surgery - HOSPITAL COURSE Hospital Course: the postoperative ileus was treated with bowel rest. He was given antibiotics for his abdominal wall cellulitis. His electrolyte derangements were repleted - ALLERGIES Allergies/Adverse Reactions: Allergies Allergy/AdvReac Type Severity Reaction Status Date / Time No Known Drug Allergies Allergy Verified 12/31/23 18:53 - MEDICATIONS Home Medications: Ambulatory Orders Medication Instructions Recorded Confirmed Atorvastatin [Lipitor] 10 mg PO DAILY 12/25/23 01/01/24 Dicyclomine [Bentyl] 20 mg PO QID PRN #30 cap 12/25/23 01/01/24 Tamsulosin HCl [Flomax] 0.4 mg PO DAILY 12/25/23 01/01/24 traZODone [Desyrel] 50 mg PO DAILY 12/25/23 01/01/24 Ondansetron Odt [Zofran Odt] 4 mg TL Q6H PRN #10 tablet 01/03/24 Sulfamethox/Trimeth 800/160 1 tablet PO BID 7 Days #14 tablet 01/03/24 [Bactrim Ds] Sulfamethoxazole/Trimethoprim 1 each PO BID 7 Days #14 tablet 01/03/24 [Bactrim 400-80 mg Tablet] oxyCODONE [Roxicodone] 5 mg PO Q4-6H #10 tablet 01/03/24 oxyCODONE [Roxicodone] 5 mg PO Q6H PRN #10 tablet 01/03/24 - PHYSICAL EXAM AT DISCHARGE General Appearance: positive: No acute distress Eyes Bilateral: positive: Normal inspection ENT: positive: ENT inspection nml Neck: positive: Nml inspection Respiratory: positive: Chest non-tender, No respiratory distress, Breath sounds nml Cardiovascular: positive: Regular rate & rhythm, No murmur, No gallop Abdomen: positive: Non-tender ( Cellulitis around surgical site) Skin: positive: Color nml ( cellulitis around the operative site) Extremities: positive: Non-tender Neurologic/Psychiatric: positive: Oriented x3 - LABS Result Diagrams: 01/03/24 04:59 01/03/24 04:59 - DIAGNOSTIC IMAGING Diagnostic Imaging Results: Final report reviewed Diagnostic Imaging Results Comments: abdominal x-ray - SEPSIS Current Stage of Sepsis: Ruled out Sepsis Criteria: Recorded Heart Rate greater than 90 bpm - QUALITY (Female Hip Fx Only) Was patient sent home on osteoporosis medication?: No - FOLLOW UP Follow Up: with PCP, [facility] physicians - TIME SPENT Time Spent in Discharge (Minutes): 45 <Meghan Salcido - Last Filed: 01/03/24 15:45> Discharge Summary - LABS Result Diagrams: 01/03/24 04:59 01/03/24 04:59 - FOLLOW UP Follow Up: Del Rodriguez, General surgery"
[2024-01-03] MEDS: ACETAMINOPHEN 325 MG TABLET PO PRN (16:23)
[2024-01-03] MEDS: ONDANSETRON ODT 4 MG TABLET TL PRN (16:23)
[2024-01-03 16:37] VITALS: BP 137/97
[2024-01-04] MEDS ORDERED: cefTRIAXone 1 GM in SODIUM CHLORIDE 0.9% MINIBAG 100 ML IV SCH (09:00)
== END 2024-01-03 16:45 | disposition home or self-care (01) | DRG 394 ==
LOC: ED 17:47 → MS2 18:37 → OBSVTOIN 01-02 11:18
PROVIDERS: ADMIT Physician Assistant Medical; ATTEND Nurse Practitioner Acute Care
DX: K91.89 Other postprocedural complications and disorders of digestive system (principal); E87.1 Hypo-osmolality and hyponatremia; L03.115 Cellulitis of right lower limb; K56.7 Ileus, unspecified; E87.6 Hypokalemia; L03.311 Cellulitis of abdominal wall; E78.5 Hyperlipidemia, unspecified; N40.0 Benign prostatic hyperplasia without lower urinary tract symptoms; Y83.8 Other surgical procedures as the cause of abnormal reaction of the patient, or of later complication, without mention of misadventure at the time of the procedure; Z79.899 Other long term (current) drug therapy
CPT/HCPCS: 36415; 74018; 80048; 80053; 85025; 96365; 96366; 96375; 96376; 99284; 99285; A9270; G0378; J0131; J1170; J2765; J7120; Q0162